=== PATIENT | male | born 1950 | race Caucasian/White ===

== ENCOUNTER 2017-10-18 08:08 | Inpatient (IN) ==
[2017-10-18] MEDS ORDERED: Ipratropium/Albuterol Neb 3 ML IH ONE (08:11)
--- NOTE | 2017-10-18 08:39 | Emergency Department Note ---
Disposition Clinical Impression: Acute exacerbation of chronic obstructive airways disease Disposition: Admitted As Inpatient Condition: Fair [facility]Primary Care Provider[facility] - Forms: ED Satisfaction Letter Time of Disposition: 12:11 General Adult HPI - General Chief complaint: ED Shortness of Breath/Dyspnea Stated complaint: COPD Time Seen by Provider: 10/18/17 08:11 Source: EMS Limitations: no limitations - History of Present Illness HPI Narrative: This is a 66-year-old male with history of COPD, recently initiated on treatment at the [facility] with amoxicillin and prednisone, brought in by EMS because of shortness of breath. He states that he was unable to sleep all night because of shortness of breath. Thus his symptoms began 8-10 hours prior to arrival. He derived no benefit from his own albuterol treatment at home. He was given another bronchodilator treatment by EMS. Pain Scale: 4 - Related Data Previous Rx's Medication Instructions Recorded Acetaminophen [Tylenol] 500 mg PO Q6HR #12 tablet 01/06/17 Lidocaine Patch [Lidoderm 5% patch] 1 each TP DAILY PRN #3 adh..patch 01/06/17 diazePAM [Valium] 5 mg PO BID #10 tablet 01/06/17 predniSONE [Prednisone] 50 mg PO DAILY #4 tablet 01/06/17 HYDROcodone/Acet 5/325 mg [[place] 1 tab PO Q6H PRN #12 tab 01/08/17 5-325 mg] Allergies Allergy/AdvReac Type Severity Reaction Status Date / Time No Known Allergies Allergy Verified 01/07/17 22:25 All systems ED: reviewed and negative except as stated. Respiratory: Reports: cough, dyspnea Past Medical History - Past Medical History Medical history: Reports: COPD, CVA Psychiatric history: Reports: no psych history, PTSD - Social History Smoking Status: Current every day smoker Smokeless Tobacco Status: No Alcohol use: Reports: none Drug use: Reports: none Physical Exam - General Limitations: no limitations General appearance: alert, in no apparent distress - Head Head exam: atraumatic, normocephalic, normal inspection - Eye Eye exam: Present: normal appearance, PERRL, EOMI - Chest Chest inspection: Present: normal inspection, symmetric chest wall rise - Respiratory Respiratory exam: Present: respiratory distress, wheezes, accessory muscle use, prolonged expiratory phase - Cardiovascular Cardiovascular exam: Present: regular rate, normal rhythm, normal heart sounds - Abdominal Exam Abdominal exam: Present: soft, Non-Tender. Absent: tenderness, distention, guarding, rebound, rigidity - Extremities Exam Extremities exam: Present: normal inspection, full ROM. Absent: tenderness, pedal edema - Neurological Exam Neurological exam: Present: alert, oriented X3 - Psychiatric Psychiatric exam: Present: normal affect, normal mood - Skin Skin exam: Present: warm, dry, intact, normal color Course Course Narrative: This is a 66-year-old male with COPD exacerbation and possibly pneumonia. He appears to already be on steroid treatment. Vital Signs Temperature 97.9 F 10/18/17 08:10 Pulse Rate 56 10/18/17 08:10 Respiratory Rate 18 10/18/17 08:10 Blood Pressure 142/67 10/18/17 08:10 O2 Sat by Pulse Oximetry 95 10/18/17 08:10 Temperature 97.9 F 10/18/17 08:10 Pulse Rate 84 10/18/17 09:49 Respiratory Rate 20 10/18/17 09:49 Blood Pressure 127/85 10/18/17 09:49 O2 Sat by Pulse Oximetry 97 10/18/17 09:49 Oxygen Delivery Oxygen Delivery Room Air Medical Decision Making - MDM Narrative Medical decision making narrative: This is a 66-year-old male with COPD exacerbation. He has leukocytosis, but this is most likely secondary to steroid treatment. Bronchodilator treatment mobilized secretions and worsened his cough Bilevel positive airway pressure was tried but was not helpful because it caused more coughing. I discussed his case with the on-call hospitalist, who accepted him for admission for observation for a COPD exacerbation. - Lab Data Lab results narrative: CBC shows leukocytosis of 21.8 BMP was unremarkable Lactate was at the upper end of normal at 2.2 Troponin was low Result diagrams: 10/18/17 08:11 10/18/17 08:11 Lab Results 10/18/17 10/18/17 10/18/17 Range/Units 08:11 08:11 08:20 WBC 21.8 H (4.3-11.1) K/mcL RBC 5.24 (4.19-5.50) M/mcL Hgb 15.7 (12.9-16.9) g/dL Hct 46.6 (37.5-50.1) % MCV 88.9 (83.0-100.0) fL MCH 30.0 (28.0-33.3) pg MCHC 33.7 (31.6-35.5) g/dL RDW 13.0 (11.5-14.5) % Plt Count 187 (140-400) K/mcL MPV 10.8 (9.4-12.4) fL Immature Gran % 0.5 (0-4) % Seg Neutrophils % 75.4 % Lymphocytes % 17.3 % Monocytes % 6.5 % Eosinophils % 0.0 % Basophils % 0.3 % Neutrophils # 16.4 H (1.6-8.9) K/mcL Lymphocytes # 3.8 (0.6-4.6) K/mcL Monocytes # 1.4 H (0.0-1.3) K/mcL Eosinophils # 0.0 (0.0-0.6) K/mcL Basophils # 0.1 (0.0-0.2) K/mcL Sodium 142 (136-145) mEq/L Potassium 4.5 (3.5-5.1) mEq/L Chloride 106 (98-107) mEq/L Carbon Dioxide 27 (23-29) mEq/L BUN 14 (8-23) mg/dL Creatinine 0.93 (0.70-1.30) mg/dL Est GFR ( Amer) > 60 (> 60) Est GFR (Non-Af Amer) > 60 (> 60) BUN/Creatinine Ratio 15 (6-26) Glucose 113 H (70-105) mg/dL Calculated Osmolality 295 (280-300) Lactic Acid 2.2 (0.5-2.2) mmol/L Calcium 9.9 (8.6-10.3) mg/dL Troponin I < 0.03 (< 0.04) ng/mL - Radiology Data Radiology results reviewed: Yes I reviewed the patient's radiology results. Chest x-ray showed no acute process Critical Care Time Critical Care Time: Yes Total Critical Care Time: 20 Attestation: 20 minutes of critical care time was invested in patient evaluation, review of lab results, and discussion with staff on treatment modalities, independent of other procedures.
[2017-10-18 09:01] LABS: BUN/Creatinine Ratio 15 (6-26); Blood Urea Nitrogen 14 mg/dL (8-23); Calcium 9.9 mg/dL (8.6-10.3); Carbon Dioxide 27 mEq/L (23-29); Chloride 106 mEq/L (98-107); Glucose 113 mg/dL (70-105); Osmolality,Calculated 295 (280-300); Potassium 4.5 mEq/L (3.5-5.1); Sodium 142 mEq/L (136-145); Troponin I < 0.03 ng/mL (< 0.04); eGFR For Non-African Americans > 60 (> 60)
[2017-10-18 09:02] LABS: Basophils # 0.1 K/mcL (0.0-0.2); Basophils % 0.3 %; Hematocrit 46.6 % (37.5-50.1); Hemoglobin 15.7 g/dL (12.9-16.9); Immature Granulocytes % 0.5 % (0-4); Lymphocytes # 3.8 K/mcL (0.6-4.6); Lymphocytes % 17.3 %; Mean Corpuscular HGB Conc 33.7 g/dL (31.6-35.5); Mean Corpuscular Volume 88.9 fL (83.0-100.0); Mean Platelet Volume 10.8 fL (9.4-12.4); Monocytes # 1.4 K/mcL (0.0-1.3); Monocytes % 6.5 %; Neutrophils # 16.4 K/mcL (1.6-8.9); Platelet Count 187 K/mcL (140-400); Red Blood Count 5.24 M/mcL (4.19-5.50); Segmented Neutrophils % 75.4 %
[2017-10-18] MEDS ORDERED: Doxycycline 100 MG CAPSULE PO ONE (09:50)
[2017-10-18] MEDS ORDERED: cefTRIAXone 1,000 MG in Water for inj. (sterile) 20 ML 10 ML IVP ONE (09:50)
[2017-10-18] MEDS ORDERED: 0.9 % Sodium Chloride 1,000 ML IVC ONE (09:51)
[2017-10-18] MEDS ORDERED: methylPREDNISolone 125 MG/2 ML VIAL IVP ONE ×2 (13:53→15:15)
[2017-10-18] MEDS ORDERED: Acetaminophen 325 MG TABLET PO PRN (13:58)
[2017-10-18] MEDS ORDERED: *HR* HYDROcodone/Acet 5/325 mg TABLET PO PRN (13:58)
[2017-10-18] MEDS ORDERED: Naloxone 0.4 MG/ML INJ IVP PRN (13:58)
[2017-10-18] MEDS ORDERED: *HR* Promethazine 25 MG/ML VIAL IVP PRN (14:25)
[2017-10-18] MEDS: Azithromycin 500 MG in D5% in Water 250 ML IVPB SCH (15:14)
[2017-10-18] MEDS: Ipratropium/Albuterol Neb 3 ML IH SCH ×3 (15:15→23:30)
--- NOTE | 2017-10-18 15:51 | Internal Med History&Physical ---
<HaydenhollileylaToro moran - Last Filed: 10/18/17 16:18> Date of Encounter: 10/18/17 Time of Encounter: 13:30 Internal Medicine - H&P: HPI Chief complaint: SOB/Dyspnea Admitted From: Emergency Dept Plans for Post Hospital Care: Home History of present illness: Mr. Flores is a 66 year old male w/PMH of COPD, migraines, and TIA 3-4 years ago presents from the ED w/CC of SOB/dyspnea that began yesterday afternoon and worsened today. Reports his SO has been sick recently. Pt. reports Stage IV COPD. [facility] and [facility] on PO amoxicillin, prednisone, and Tessalon. States symptoms worsened. Denies history of DVT/PE. Currently no alleviating or aggravating factors. Patient reports cough and nausea from excessive coughing but denies recent illness, fever, chills, vomiting, headache , changes in vision, unusual bleeding, abdominal pain, diarrhea, constipation, chest pain, shortness of breath, dizziness, lightheadedness, numbness, tingling , pre-syncope, or syncope. Past Med Surg Social Fam HX - Past Medical History Source: patient, old records reviewed Medical history: COPD, migraine, TIA Psychiatric history: PTSD - Past Surgical History Additional surgical history: Metal in Back - Social History Smoking Status: Current every day smoker Packs per day: <1 PPD Smokeless Tobacco Status: No Alcohol use: none Drug use: marijuana Current living situation: Home, With Family Activity Level: Independent ambulation Recent Out of Country Travel Within the Last 8 Weeks: No Exposure or Possible Exposure to Illness During Travel: No - Family History Mother Race: Family Member Ethnicity: Non- Living Status: Age at : 74 Cause of : Pancreatic cancer Hx Family Cancer: Yes (Pancreatic) Father Race: Family Member Ethnicity: Non- Living Status: Age at : 74 Cause of : COPD Hx Family Respiratory Disorders: Yes (COPD) Brother Race: Family Member Ethnicity: Non- Living Status: Still Living Hx Family Cardiac Disorders: Yes (Quad bypass) Sister History Unknown: Yes Race: Family Member Ethnicity: Non- Living Status: Still Living Internal Medicine - H&P: Meds 3 Allergy/AdvReac Type Severity Reaction Status Date / Time No Known Allergies Allergy Verified 01/07/17 22:25 All Systems PM: A 10-system review of systems was performed and is negative for pertinent findings except as documented above in the HPI. - Constitutional Constitutional: no chills, no fever(s), no night sweats - EENT Eyes: no change in vision, no discharge, no pain, no photophobia Ears: no ear discharge, no ear pain, no tinnitus Nose, mouth and throat: no dysphagia, no nasal discharge, no neck pain, no sore throat - Breasts Breasts: as per HPI - Cardiovascular Cardiovascular ROS IM: as per HPI, dyspnea, dyspnea on exertion, no chest pain, no diaphoresis, no lightheadedness, no palpitations, no syncope - Respiratory Respiratory: as per HPI, cough, dyspnea, dyspnea on exertion, pain with cough, no wheezing, no excessive phlegm production - Gastrointestinal Gastrointestinal: as per HPI, nausea, no abdominal pain, no diarrhea, no hematemesis, no hematochezia, no melena, no vomiting - Genitourinary Genitourinary ROS male: as per HPI - Musculoskeletal Musculoskeletal ROS IM: no numbness, no tingling - Integumentary Integumentary IM: no rash, no unusual bruising - Neurological Neurological ROS: no confusion, no convulsions, no focal weakness, no numbness, no tingling, no tremor(s) - Psychiatric Psychiatric: as per HPI, other (PTSD) - Endocrine Endocrine IM: as per HPI - Hematologic/Lymphatic Hematologic/Lymphatic: no easy bruising - Allergic/Immunologic Allergic/Immunologic: as per HPI - Constitutional Vitals: Temp Pulse Resp BP Pulse Ox 98.4 F 88 20 121/78 95 10/18/17 13:56 10/18/17 13:56 10/18/17 15:16 10/18/17 13:56 10/18/17 15:16 General appearance: Present: cooperative, A&O X 3, pleasant, severe distress ( Respiratory/coughing), answers questions appropriately Exam: Pt. examined at bedside and was tripoding d/t SOB/dypnea. Accessory muscle use. Pt. has severe cough that results in increased SOB and difficulty speaking. No steroids administered in ED so will order 125 SoluMedrol IVP ONCE followed by 60 mg IVP Q8HR. Oxymask changed to NC as pt states it works better. Pt. reports being seen at [facility] 2 days ago and placed on by mouth amoxicillin, prednisone, and Tessalon Perles which patient states did not help. Pt. reports he is hungry, but nauseous from coughing. Will order clear liquid diet and advance as tolerated. Pt. denies any other complaints. - Head Head exam: Present: atraumatic, normocephalic - Eye Eye exam: Present: PERRL, conjuntiva pink, sclera anicteric Pupils: Present: PERRL - ENT ENT exam: Present: normal exam - Neck Neck exam general surgery: Present: supple, trachea midline. Absent: lymphadenopathy - Respiratory Respiratory exam: Present: accessory muscle use, respiratory distress, wheezes. Absent: rales, rhonchi - Cardiovascular Cardiovascular exam: Present: RRR, +S1, +S2. Absent: diastolic murmur, gallop, rubs, systolic murmur - GI/Abdominal GI/Abdominal exam: Present: normal bowel sounds, soft, no peritoneal signs. Absent: distended, tenderness - Rectal Rectal exam: Present: deferred - Additional comments: exam deferred. - Extremities Exam Extremities exam: Present: warm, radial pulses palpable and symmetrical. Absent : calf tenderness, cyanotic, pedal edema - Back Exam Back exam: Present: normal inspection - Neurological Exam Neurological exam: Present: alert, CN II-XII intact, oriented X3, no focal deficits. Absent: pronater drift, facial droop, speech deficit - Psychiatric Psychiatric exam: Present: anxious - Skin Skin exam: Present: dry, intact Internal Med - H&P Results - Labs CBC & Chem 7: 10/18/17 08:11 10/18/17 08:11 - Diagnostic Studies Chest x-ray Additional comments: Impressions Chest X-Ray 10/18/17 08:11 IMPRESSION: 1. No acute cardiopulmonary process. 2. Emphysema. D/ / Milton Verduzco MD / Milton Verduzco MD Interpreting Provider: Milton Verduzco MD - Assessment and plan (1) Acute exacerbation of chronic obstructive airways disease Current Visit: Yes Status: Acute Assessment and plan: Acute exacerbation of COPD, likely complicated by bronchitis. Pt. states SOB/ dyspnea started yesterday afternoon and his SO has been ill. Concern for possible PE so D-dimer ordered which is <215. WBC 21.8 on admission. Mucinex for cough. Blood cultures x2. Sputum culture. Respiratory infection panel. Patient received by mouth doxycycline and IVP ceftriaxone in ED. IVPB azithromycin 500 mg daily ordered to begin now. Will adjust abx coverage based on culture/panel results. DuoNeb's every 4 scheduled. 125 mg IVP Solu-Medrol to be followed by 60 mg IVPB every 8 hour. Supplemental O2 with titration and SPO2 monitoring. Pt. would like SW consult for POA paperwork. Pt. discussed w/ Dr. Garcia who agrees w/plan of care. Pt. is high risk for further morbidity and respiratory distress d/t current acute exacerbation of COPD, severe SOB/ dyspnea, hx of stage IV COPD, sick contact w/SO, leukocytosis, and current tobacco abuse. Observation. (2) Bronchitis Current Visit: Yes Status: Acute Assessment and plan: Acute bronchitis associated w/COPD exacerbation. WBC 21.8 on admission. Mucinex for cough. Blood cultures x2. Sputum culture. Respiratory infection panel. Patient received by mouth doxycycline and IVP ceftriaxone in ED. IVPB azithromycin 500 mg daily ordered to begin now. Will adjust abx coverage based on culture/panel results. DuoNeb's every 4 scheduled. 125 mg IVP Solu-Medrol to be followed by 60 mg IVPB every 8 hour. Supplemental O2 with titration and SPO2 monitoring. (3) SOB (shortness of breath) Current Visit: Yes Status: Acute Assessment and plan: Acute SOB/dyspnea since yesterday afternoon d/t COPD exacerbation. DuoNebs Q4HR scheduled. Supplemental O2 w/titration and SpO2 monitoring. 125 mg IVP SoluMedrol ONCE to be followed by 60 mg IVP Q8HR. Falls/safety precautions and up with assist only. (4) Cough Current Visit: Yes Status: Acute Assessment and plan: Acute on chronic cough associated w/COPD and bronchitis. Sputum culture ordered. Respiratory infection panel ordered. Mucinex. DuoNebs Q4HR scheduled. Supplemental O2 w/titration and SpO2 monitoring. (5) DVT prophylaxis Current Visit: Yes Status: Acute Assessment and plan: Heparin 5,000 units SQ Q8HR for DVT prophylaxis. Monitor pt. for signs of bleeding. - Time Spent With Patient Total time spent is greater than 50% in coordination of care (as documented) at patient's floor/unit and/or counseling patient: Greater than 35 minutes <France Garcia - Last Filed: 10/18/17 16:27> Date of Encounter: 10/18/17 Internal Medicine - H&P: HPI History of present illness: Mr. Flores is a 66 year old male All Systems PM: A 10-system review of systems was performed and is negative for pertinent findings except as documented above in the HPI. - Constitutional Vitals: Temp Pulse Resp BP Pulse Ox 98.4 F 88 20 121/78 95 10/18/17 13:56 10/18/17 13:56 10/18/17 15:16 10/18/17 13:56 10/18/17 15:16 Internal Med - H&P Results - Labs CBC & Chem 7: 10/18/17 08:11 10/18/17 08:11 - Assessment and plan (1) Acute exacerbation of chronic obstructive airways disease Current Visit: Yes Status: Acute (2) Bronchitis Current Visit: Yes Status: Acute (3) SOB (shortness of breath) Current Visit: Yes Status: Acute (4) Cough Current Visit: Yes Status: Acute (5) DVT prophylaxis Current Visit: Yes Status: Acute - Time Spent With Patient Total time spent is greater than 50% in coordination of care (as documented) at patient's floor/unit and/or counseling patient: - Attending Attestation I examined this patient and my medical decision-making was reviewed with the Nurse Practitioner. I agree with the documented findings, disposition and treatment plan as described except to the extent set forth below.
[2017-10-18 16:01] LABS: Adenovirus Not Detected (Not Detect); Bordetella Pertussis Not Detected (Not Detect); Chlamydophila pneumoniae Not Detected (Not Detect); Coronavirus 229E Not Detected (Not Detect); Coronavirus HKU1 Not Detected (Not Detect); Coronavirus NL63 Not Detected (Not Detect); Coronavirus OC43 Not Detected (Not Detect); Human Metapneumovirus Not Detected (Not Detect); Human Rhinovirus/Enterovirus DETECTED (Not Detect); Influenza A Subtype 2009 H1 Not Detected (Not Detect); Influenza A Untypeable Not Detected (Not Detect); Influenza B Not Detected (Not Detect); Mycoplasma pneumoniae Not Detected (Not Detect); Parainfluenza Virus 1 Not Detected (Not Detect); Parainfluenza Virus 2 Not Detected (Not Detect); Parainfluenza Virus 3 Not Detected (Not Detect); Parainfluenza Virus 4 Not Detected (Not Detect); Respiratory Syncytial Virus Not Detected (Not Detect)
[2017-10-18] MEDS: *HR* Heparin 5,000 UNIT/ML VIAL SQ SCH (21:04)
[2017-10-18] MEDS: Budesonide/Formoterol 160/4.5 1 PUFF INH IH SCH (21:55)
[2017-10-18] MEDS: 0.9 % Sodium Chloride 1,000 ML IVC SCH (21:58)
[2017-10-19] MEDS: methylPREDNISolone 125 MG/2 ML VIAL IVP SCH ×3 (00:09→14:30)
[2017-10-19] MEDS: Ipratropium/Albuterol Neb 3 ML IH SCH ×6 (03:46→23:22)
[2017-10-19] MEDS: *HR* Heparin 5,000 UNIT/ML VIAL SQ SCH ×3 (05:13→21:29)
[2017-10-19 05:23] LABS: Basophils % 0.2 %; Hematocrit 42.5 % (37.5-50.1); Hemoglobin 14.1 g/dL (12.9-16.9); Immature Granulocytes % 0.8 % (0-4); Lymphocytes # 1.2 K/mcL (0.6-4.6); Lymphocytes % 9.2 %; Mean Corpuscular HGB Conc 33.2 g/dL (31.6-35.5); Mean Corpuscular Hemoglobin 30.1 pg (28.0-33.3); Mean Corpuscular Volume 90.8 fL (83.0-100.0); Mean Platelet Volume 11.3 fL (9.4-12.4); Monocytes # 0.3 K/mcL (0.0-1.3); Monocytes % 2.7 %; Platelet Count 137 K/mcL (140-400); Red Blood Count 4.68 M/mcL (4.19-5.50); Red Cell Distribution Width 12.8 % (11.5-14.5); Segmented Neutrophils % 87.1 %
[2017-10-19 05:40] LABS: Alanine Aminotransferase 15 Units/L (7-52); Albumin 4.1 g/dL (3.5-5.7); Albumin/Globulin Ratio 2.1 (1.1-2.2); Alkaline Phosphatase 64 Units/L (34-104); Aspartate Amino Transferase 23 Units/L (13-39); BUN/Creatinine Ratio 17 (6-26); Bilirubin,Total 0.4 mg/dL (0.3-1.0); Blood Urea Nitrogen 17 mg/dL (8-23); Calcium 9.1 mg/dL (8.6-10.3); Carbon Dioxide 27 mEq/L (23-29); Chloride 112 mEq/L (98-107); Chol/HDL Ratio 2.7 (0-4.9); Cholesterol 129 mg/dL (< 200); Glucose 137 mg/dL (70-105); HDL Cholesterol 47 mg/dL (40-59); LDL Cholesterol,Calculated 68 mg/dL (0-99); Magnesium 2.1 mg/dL (1.6-2.6); Osmolality,Calculated 294 (280-300); Potassium 3.7 mEq/L (3.5-5.1); Sodium 140 mEq/L (136-145); Total Protein 6.1 g/dL (6.4-8.9); Triglycerides 69 mg/dL (< 150); eGFR For Non-African Americans > 60 (> 60)
[2017-10-19] MEDS: Budesonide/Formoterol 160/4.5 1 PUFF INH IH SCH ×2 (07:44→19:55)
[2017-10-19] MEDS: Cholecalciferol (D-3) 1,000 UNIT TABLET PO SCH (08:38)
[2017-10-19] MEDS: 0.9 % Sodium Chloride 1,000 ML IVC SCH (10:50)
[2017-10-19] MEDS: Azithromycin 500 MG in D5% in Water 250 ML IVPB SCH (14:29)
--- NOTE | 2017-10-19 17:56 | Internal Med Progress Note ---
Hospitalist Progress Note - Encounter Date of Encounter: 10/19/17 Time of Encounter: 17:53 - Subjective Interval History: Patient seen and examined at bedside States he feels better Wants to ambulate - Exam Vitals: Temp Pulse Resp BP Pulse Ox 97.9 F 52 16 120/58 94 10/19/17 16:43 10/19/17 16:43 10/19/17 16:43 10/19/17 16:43 10/19/17 16:43 Exam: General: Alert and oriented. In no acute distress. Skin:Normal color, no rash, no lesions. HEENT:EOM, pupils equal, round and reactive. Cardiovascular:Heart sounds distant. Normal S1 & S2, no rubs, murmurs or gallops. No JVD. Pulse regular. Lungs: Breath sounds faint wheezes-decreased air exchange Abdomen:Soft, non-tender, no rigidity. Extremities:No deformity, tenderness, or clubbing. Bilateral lower extremities with 2+ pitting edema. Neurological:Normal cognition and motor skills. Pulses:Carotid and radial pulses normal +2. Rest of the physical exam is non contributory. - Assessment and Plan (1) Acute exacerbation of chronic obstructive airways disease Current Visit: Yes Status: Acute Assessment and Plan: Acute exacerbation of COPD, likely complicated by bronchitis. Pt. states SOB/ dyspnea started yesterday afternoon and his SO has been ill. Concern for possible PE so D-dimer ordered which is <215. WBC 21.8 on admission. Mucinex for cough. Blood cultures x2. Sputum culture. Respiratory infection panel. Patient received by mouth doxycycline and IVP ceftriaxone in ED. IVPB azithromycin 500 mg daily ordered to begin now. Will adjust abx coverage based on culture/panel results. DuoNeb's every 4 scheduled. 125 mg IVP Solu-Medrol to be followed by 60 mg IVPB every 8 hour. Supplemental O2 with titration and SPO2 monitoring. Pt. would like SW consult for POA paperwork. Pt. discussed w/ Dr. Garcia who agrees w/plan of care. Pt. is high risk for further morbidity and respiratory distress d/t current acute exacerbation of COPD, severe SOB/ dyspnea, hx of stage IV COPD, sick contact w/SO, leukocytosis, and current tobacco abuse. Observation. (2) Bronchitis Current Visit: Yes Status: Acute Assessment and Plan: Patient feels better, no coughing at this time Requesting to ambulate in halls cont Mucinex blood cultures X2 Sputum culture -normal upper resp dusty cont duonebs solumedrol 60 mg IV cont 02 cont ABX (3) SOB (shortness of breath) Current Visit: Yes Status: Acute Assessment and Plan: improving Duoneb x 4hr supplemental O2 monitor Spo2 cont solu medrol 60 IVP (4) Cough Current Visit: Yes Status: Acute Assessment and Plan: Acute on chronic cough associated w/COPD and bronchitis. Sputum culture ordered. Respiratory infection panel ordered. Mucinex. DuoNebs Q4HR scheduled. Supplemental O2 w/titration and SpO2 monitoring. (5) DVT prophylaxis Current Visit: Yes Status: Acute Assessment and Plan: Heparin 5,000 units SQ Q8HR for DVT prophylaxis. Monitor pt. for signs of bleeding. - Time Spent with Patient Total time spent is greater than 50% in coordination of care (as documented) at patient's floor/unit and/or counseling patient: Internal Medicine: Result - Labs CBC & Chem 7: 10/19/17 04:23 10/19/17 04:23 Labs: Short CBC 10/19/17 Range/Units 04:23 WBC 12.6 H (4.3-11.1) K/mcL Hgb 14.1 D (12.9-16.9) g/dL Hct 42.5 (37.5-50.1) % Plt Count 137 L (140-400) K/mcL Neutrophils # 11.0 H (1.6-8.9) K/mcL BMP 10/19/17 04:23 Sodium 140 Potassium 3.7 Chloride 112 H Carbon Dioxide 27 BUN 17 Creatinine 1.02 Glucose 137 H Calcium 9.1 Liver Function 10/19/17 Range/Units 04:23 Total Bilirubin 0.4 (0.3-1.0) mg/dL AST 23 (13-39) Units/L ALT 15 (7-52) Units/L Alkaline Phosphatase 64 (34-104) Units/L Albumin 4.1 (3.5-5.7) g/dL - ABG Interpretation ABG results: PT/INR, D-dimer D-Dimer < 215 ng/mLFEU (0-500) 10/18/17 13:11 Consult Discharge Plan - Plan [facility]errals: [facility] [Primary Care Provider] -
[2017-10-20] MEDS: methylPREDNISolone 125 MG/2 ML VIAL IVP SCH ×3 (00:05→18:09)
[2017-10-20] MEDS: Ipratropium/Albuterol Neb 3 ML IH SCH ×6 (03:30→23:16)
[2017-10-20] MEDS: *HR* Heparin 5,000 UNIT/ML VIAL SQ SCH ×3 (06:04→21:53)
[2017-10-20] MEDS: Budesonide/Formoterol 160/4.5 1 PUFF INH IH SCH ×2 (07:57→20:04)
[2017-10-20] MEDS: Cholecalciferol (D-3) 1,000 UNIT TABLET PO SCH (08:52)
[2017-10-20] MEDS: Azithromycin 500 MG in D5% in Water 250 ML IVPB SCH (14:19)
--- NOTE | 2017-10-20 14:40 | Internal Med Progress Note ---
Hospitalist Progress Note - Encounter Date of Encounter: 10/20/17 Time of Encounter: 10:00 - Subjective Interval History: Patient seen and examined at bedside He has been ambulating sats stable on RA- Denies any SOB or cough, does have scattered wheezes - Exam Vitals: Temp Pulse Resp BP Pulse Ox 98.2 F 55 18 128/56 92 10/20/17 11:50 10/20/17 11:50 10/20/17 11:50 10/20/17 11:50 10/20/17 11:50 Exam: General: Alert and oriented. In no acute distress. Skin:Normal color, no rash, no lesions. HEENT:EOM, pupils equal, round and reactive. Cardiovascular:Heart sounds distant. Normal S1 & S2, no rubs, murmurs or gallops. No JVD. Pulse regular. Lungs: Breath sounds faint wheezes-decreased air exchange Abdomen:Soft, non-tender, no rigidity. Extremities:No deformity, tenderness, or clubbing. Bilateral lower extremities with 2+ pitting edema. Neurological:Normal cognition and motor skills. Pulses:Carotid and radial pulses normal +2. Rest of the physical exam is non contributory. - Assessment and Plan (1) Acute exacerbation of chronic obstructive airways disease Current Visit: Yes Status: Acute Assessment and Plan: Patient feels better ,no coughing ambulating without SOB cont mucinex Blood culture pending Sputum culture -normal upper resp dusty cont duonebs solumedrol decreased to 60mg IV every 12 cont 02 cont ABX encouraged to stop smoking (2) Bronchitis Current Visit: Yes Status: Acute Assessment and Plan: Patient feels better, no coughing at this time Requesting to ambulate in halls cont Mucinex blood cultures X2 Sputum culture -normal upper resp dusty cont duonebs solumedrol 60 mg IV cont 02 cont ABX (3) SOB (shortness of breath) Current Visit: Yes Status: Acute Assessment and Plan: improving Duoneb x 4hr supplemental O2 monitor Spo2 cont solu medrol 60 IVP decrease to every 12 hrs (4) Cough Current Visit: Yes Status: Acute Assessment and Plan: Acute on chronic cough associated w/COPD and bronchitis. Sputum culture ordered. Respiratory infection panel ordered. Mucinex. DuoNebs Q4HR scheduled. Supplemental O2 w/titration and SpO2 monitoring. (5) DVT prophylaxis Current Visit: Yes Status: Acute Assessment and Plan: Heparin 5,000 units SQ Q8HR for DVT prophylaxis. Monitor pt. for signs of bleeding. (6) Chronic back pain Current Visit: Yes Status: Acute Assessment and Plan: patient states he has chronic back pain to the point the he has difficulty ambulating we will consult PT/OT cont with norco lidoderm patch add muscle relaxer - Time Spent with Patient Total time spent is greater than 50% in coordination of care (as documented) at patient's floor/unit and/or counseling patient: Internal Medicine: Result - Labs CBC & Chem 7: 10/20/17 14:54 10/19/17 04:23 - ABG Interpretation ABG results: PT/INR, D-dimer D-Dimer < 215 ng/mLFEU (0-500) 10/18/17 13:11 Consult Discharge Plan - Plan [facility]errals: [facility] [Primary Care Provider] - (6) Chronic back pain Qualifiers: Back pain location: low back pain Back pain laterality: unspecified Sciatica presence: unspecified whether sciatica present Qualified Code(s): M54.5 - Low back pain; G89.29 - Other chronic pain
[2017-10-20] MEDS: *HR* HYDROcodone/Acet 5/325 mg TABLET PO SCH ×2 (15:02→20:43)
[2017-10-20 15:06] LABS: Basophils % 0.1 %; Hematocrit 39.8 % (37.5-50.1); Hemoglobin 13.6 g/dL (12.9-16.9); Immature Granulocytes % 1.3 % (0-4); Lymphocytes # 1.1 K/mcL (0.6-4.6); Lymphocytes % 5.9 %; Mean Corpuscular HGB Conc 34.2 g/dL (31.6-35.5); Mean Corpuscular Hemoglobin 31.1 pg (28.0-33.3); Mean Corpuscular Volume 90.9 fL (83.0-100.0); Mean Platelet Volume 11.1 fL (9.4-12.4); Monocytes # 0.6 K/mcL (0.0-1.3); Monocytes % 3.1 %; Neutrophils # 16.5 K/mcL (1.6-8.9); Platelet Count 135 K/mcL (140-400); Red Blood Count 4.38 M/mcL (4.19-5.50); Segmented Neutrophils % 89.6 %
[2017-10-20 15:24] LABS: BUN/Creatinine Ratio 26 (6-26); Blood Urea Nitrogen 24 mg/dL (8-23); Calcium 8.9 mg/dL (8.6-10.3); Carbon Dioxide 27 mEq/L (23-29); Chloride 107 mEq/L (98-107); Glucose 192 mg/dL (70-105); Osmolality,Calculated 295 (280-300); Potassium 4.4 mEq/L (3.5-5.1); Sodium 138 mEq/L (136-145); eGFR For Non-African Americans > 60 (> 60)
[2017-10-21] MEDS: *HR* HYDROcodone/Acet 5/325 mg TABLET PO SCH ×6 (01:42→20:20)
[2017-10-21] MEDS ORDERED: *HR* LORazepam 2 MG/ML VIAL IVP ONE (02:24)
[2017-10-21] MEDS: Ipratropium/Albuterol Neb 3 ML IH SCH ×8 (03:29→23:57)
[2017-10-21] MEDS: *HR* Heparin 5,000 UNIT/ML VIAL SQ SCH ×3 (06:46→21:16)
[2017-10-21] MEDS: methylPREDNISolone 125 MG/2 ML VIAL IVP SCH (06:46)
[2017-10-21] MEDS: Cholecalciferol (D-3) 1,000 UNIT TABLET PO SCH (08:49)
--- NOTE | 2017-10-21 09:48 | Internal Med Progress Note ---
Hospitalist Progress Note - Encounter Date of Encounter: 10/21/17 Time of Encounter: 09:43 - Subjective Interval History: Patient seen and examined at bedside He is coughing -nonproductive- breathing tx given improving coughing. Lung sounds improved - Exam Vitals: Temp Pulse Resp BP Pulse Ox 98.5 F 66 16 147/80 96 10/20/17 21:51 10/21/17 02:40 10/20/17 21:51 10/21/17 02:40 10/20/17 21:51 Exam: General: Alert and oriented. In no acute distress. Skin:Normal color, no rash, no lesions. HEENT:EOM, pupils equal, round and reactive. Cardiovascular:Heart sounds distant. Normal S1 & S2, no rubs, murmurs or gallops. No JVD. Pulse regular. Lungs: Breath sounds faint wheezes-decreased air exchange Abdomen:Soft, non-tender, no rigidity. Extremities:No deformity, tenderness, or clubbing. Bilateral lower extremities with 2+ pitting edema. Neurological:Normal cognition and motor skills. Pulses:Carotid and radial pulses normal +2. Rest of the physical exam is non contributory. - Assessment and Plan (1) Acute exacerbation of chronic obstructive airways disease Current Visit: Yes Status: Acute Assessment and Plan: Having coughing episode - cont breathing tx cont mucinex Blood culture pending Sputum culture -normal upper resp dusty cont duonebs solumedrol decreased to 40mg IV every 12 cont 02 cont ABX encouraged to stop smoking (2) Bronchitis Current Visit: Yes Status: Acute Assessment and Plan: Having coughing episode- cont breathing tx cont Mucinex blood cultures X2 Sputum culture -normal upper resp dusty cont duonebs solumedrol 60 mg IV cont 02 cont ABX (3) SOB (shortness of breath) Current Visit: Yes Status: Acute Assessment and Plan: improving Duoneb x 4hr supplemental O2 monitor Spo2 cont solu medrol 60 IVP decrease to every 12 hrs (4) Cough Current Visit: Yes Status: Acute Assessment and Plan: Acute on chronic cough associated w/COPD and bronchitis. Sputum culture with normal dusty . Respiratory infection panel ordered. Mucinex. DuoNebs Q4HR scheduled. Supplemental O2 w/titration and SpO2 monitoring. (5) DVT prophylaxis Current Visit: Yes Status: Acute Assessment and Plan: Heparin 5,000 units SQ Q8HR for DVT prophylaxis. Monitor pt. for signs of bleeding. (6) Chronic back pain Current Visit: Yes Status: Acute Assessment and Plan: patient states he has chronic back pain to the point the he has difficulty ambulating we will consult PT/OT cont with norco lidoderm patch add muscle relaxer - Time Spent with Patient Total time spent is greater than 50% in coordination of care (as documented) at patient's floor/unit and/or counseling patient: Internal Medicine: Result - Labs CBC & Chem 7: 10/20/17 14:54 10/20/17 14:54 Labs: Short CBC 10/20/17 Range/Units 14:54 WBC 18.4 H (4.3-11.1) K/mcL Hgb 13.6 (12.9-16.9) g/dL Hct 39.8 (37.5-50.1) % Plt Count 135 L (140-400) K/mcL Neutrophils # 16.5 H (1.6-8.9) K/mcL BMP 10/20/17 14:54 Sodium 138 Potassium 4.4 Chloride 107 Carbon Dioxide 27 BUN 24 H Creatinine 0.94 Glucose 192 H Calcium 8.9 - ABG Interpretation ABG results: PT/INR, D-dimer D-Dimer < 215 ng/mLFEU (0-500) 10/18/17 13:11 Consult Discharge Plan - Plan [facility]errals: [facility] [Primary Care Provider] - (6) Chronic back pain Qualifiers: Back pain location: low back pain Back pain laterality: unspecified Sciatica presence: unspecified whether sciatica present Qualified Code(s): M54.5 - Low back pain; G89.29 - Other chronic pain
[2017-10-21] MEDS: Budesonide/Formoterol 160/4.5 1 PUFF INH IH SCH ×2 (09:49→20:24)
[2017-10-21 11:17] LABS: Basophils % 0.2 %; Hematocrit 40.9 % (37.5-50.1); Hemoglobin 13.8 g/dL (12.9-16.9); Immature Granulocytes % 1.2 % (0-4); Lymphocytes % 6.3 %; Mean Corpuscular HGB Conc 33.7 g/dL (31.6-35.5); Mean Corpuscular Hemoglobin 30.3 pg (28.0-33.3); Mean Corpuscular Volume 89.9 fL (83.0-100.0); Mean Platelet Volume 10.9 fL (9.4-12.4); Monocytes # 0.6 K/mcL (0.0-1.3); Monocytes % 3.4 %; Neutrophils # 14.5 K/mcL (1.6-8.9); Platelet Count 148 K/mcL (140-400); Red Blood Count 4.55 M/mcL (4.19-5.50); Segmented Neutrophils % 88.9 %
[2017-10-21 11:24] LABS: Alanine Aminotransferase 36 Units/L (7-52); Albumin 3.7 g/dL (3.5-5.7); Albumin/Globulin Ratio 2.1 (1.1-2.2); Alkaline Phosphatase 58 Units/L (34-104); Aspartate Amino Transferase 21 Units/L (13-39); BUN/Creatinine Ratio 24 (6-26); Bilirubin,Total 0.4 mg/dL (0.3-1.0); Blood Urea Nitrogen 21 mg/dL (8-23); Calcium 9.1 mg/dL (8.6-10.3); Carbon Dioxide 31 mEq/L (23-29); Chloride 105 mEq/L (98-107); Globulin 1.8 g/dL (2.4-3.5); Glucose 125 mg/dL (70-105); Osmolality,Calculated 296 (280-300); Potassium 4.2 mEq/L (3.5-5.1); Sodium 141 mEq/L (136-145); Total Protein 5.5 g/dL (6.4-8.9); eGFR For Non-African Americans > 60 (> 60)
[2017-10-21 11:25] LABS: BUN/Creatinine Ratio 23 (6-26); Blood Urea Nitrogen 20 mg/dL (8-23); Carbon Dioxide 31 mEq/L (23-29); Chloride 104 mEq/L (98-107); Glucose 123 mg/dL (70-105); Osmolality,Calculated 296 (280-300); Potassium 4.2 mEq/L (3.5-5.1); Sodium 141 mEq/L (136-145); eGFR For Non-African Americans > 60 (> 60)
[2017-10-21] MEDS: Azithromycin 500 MG in D5% in Water 250 ML IVPB SCH (14:37)
[2017-10-21] MEDS: MethylPREDNISolone 40 MG/ML VIAL IVP SCH (17:23)
[2017-10-21] MEDS ORDERED: Melatonin 3 MG TABLET PO PRN (20:31)
[2017-10-22] MEDS: *HR* HYDROcodone/Acet 5/325 mg TABLET PO SCH ×7 (01:00→23:05)
[2017-10-22] MEDS: Ipratropium/Albuterol Neb 3 ML IH SCH ×6 (03:54→23:07)
[2017-10-22] MEDS: MethylPREDNISolone 40 MG/ML VIAL IVP SCH ×3 (05:44→23:05)
[2017-10-22] MEDS: *HR* Heparin 5,000 UNIT/ML VIAL SQ SCH ×3 (05:44→23:05)
[2017-10-22 06:04] LABS: Basophils % 0.2 %; Hematocrit 39.7 % (37.5-50.1); Hemoglobin 13.3 g/dL (12.9-16.9); Immature Granulocytes % 1.2 % (0-4); Lymphocytes # 1.6 K/mcL (0.6-4.6); Lymphocytes % 11.8 %; Mean Corpuscular HGB Conc 33.5 g/dL (31.6-35.5); Mean Corpuscular Hemoglobin 30.3 pg (28.0-33.3); Mean Corpuscular Volume 90.4 fL (83.0-100.0); Mean Platelet Volume 11.3 fL (9.4-12.4); Monocytes # 0.8 K/mcL (0.0-1.3); Monocytes % 6.2 %; Neutrophils # 10.8 K/mcL (1.6-8.9); Platelet Count 135 K/mcL (140-400); Red Blood Count 4.39 M/mcL (4.19-5.50); Red Cell Distribution Width 12.8 % (11.5-14.5); Segmented Neutrophils % 80.6 %
[2017-10-22 06:26] LABS: Alanine Aminotransferase 48 Units/L (7-52); Albumin 3.4 g/dL (3.5-5.7); Alkaline Phosphatase 55 Units/L (34-104); Aspartate Amino Transferase 23 Units/L (13-39); BUN/Creatinine Ratio 25 (6-26); Bilirubin,Total 0.4 mg/dL (0.3-1.0); Blood Urea Nitrogen 20 mg/dL (8-23); Calcium 8.8 mg/dL (8.6-10.3); Carbon Dioxide 32 mEq/L (23-29); Chloride 102 mEq/L (98-107); Globulin 1.7 g/dL (2.4-3.5); Glucose 133 mg/dL (70-105); Osmolality,Calculated 295 (280-300); Potassium 4.5 mEq/L (3.5-5.1); Sodium 140 mEq/L (136-145); Total Protein 5.1 g/dL (6.4-8.9); eGFR For Non-African Americans > 60 (> 60)
[2017-10-22] MEDS: Budesonide/Formoterol 160/4.5 1 PUFF INH IH SCH ×2 (07:23→20:30)
[2017-10-22] MEDS: Cholecalciferol (D-3) 1,000 UNIT TABLET PO SCH (07:56)
--- NOTE | 2017-10-22 14:42 | Palliative - Consult Note ---
Date of Encounter: 10/22/17 Time of Encounter: 12:00 - Assessment and Plan (1) Smoking addiction Current Visit: Yes Status: Acute Assessment and plan: counseled pt on smking cessation, discussed the damage that smoking causes to his health. Pt states he is aware and cutting down. offered help for smoking cessation, including nicotine patch. pt refuses. (2) Goals of care, counseling/discussion Current Visit: Yes Status: Acute Assessment and plan: Met with pt at the bedside. Discussed pt's medical condition, trajectory of illness, treatment options and prognosis. Pt states that he requested palliative care for help in the treatment of chronic back pain as he has been unable to obtain pain medication in the community. [facility] Pt is happy with the pain medication he is receiving now inpatient. Explained to pt that although we recommend continuation of his medication for chronic pain, outpatient prescription will have to be continued by PMD. Pt confirmed his code status as DNRCC Arrest and DNI. Pt is not a hospice candidate at this time, explained the option of hospice for when the need arises. (3) Acute exacerbation of chronic obstructive airways disease Current Visit: Yes Status: Acute Assessment and plan: Pt clinically improved. pt is COPD, stage IV. At baseline, on home oxygen 2L NC at night. able to walk in the house without oxygen Independent on all ADLs. management per primary team (4) SOB (shortness of breath) Current Visit: Yes Status: Acute Assessment and plan: SOB due to COPD exacerbation, now improved. Continue oxygen nc (5) Chronic back pain Current Visit: Yes Status: Chronic Assessment and plan: Pt states he has Chronic back pain for several years. Pt declares that he was on chronic treatment with Hydrocodone/acetaminophen 5/ 325mg, 2 pills BID. Pt is currently on [place] 1 pill q4hrs scheduled. He states that at the current dosage the pain is improved, and that he usually take 4 pills during the day. Recommend to change to q4hrs prn. evaluate pt's need of pain medication and adjust on discharge, to no more than 4 pills daily of [place]. Bowel regimen: docusate BID Qualifiers: Back pain location: low back pain Back pain laterality: unspecified Sciatica presence: unspecified whether sciatica present Qualified Code(s): M54.5 - Low back pain; G89.29 - Other chronic pain Palliative-CN HPI - Data of Consult Consult date: 10/20/17 Requesting Physician: France Garcia MD Primary Care Provider: [facility] - Consult Narrative Reason for consult: Pt requested palliative care History of present illness: Mr. Flores is a 66 year old male /PMH of COPD, migraines, and TIA 3-4 years ago presents from the ED complaining of worsening SOB/dyspnea. Pt. reports Stage IV COPD, [facility] and was placed on PO amoxicillin, prednisone, and Tessalon, with no improvement of symptoms. at the time of exam today, pt is sitting on chair, in no acute distress, states the cough is resolved and the SOB is better, He denies recent illness, fever, chills, vomiting, headache, abdominal pain, diarrhea, constipation, chest pain, dizziness. CC: France Garcia MD Past Med Surg Social Fam HX - Past Medical History Medical history: COPD, migraine, TIA Psychiatric history: PTSD - Past Surgical History Additional surgical history: Metal in Back - Social History Smoking Status: Current every day smoker Packs per day: <1 PPD Smokeless Tobacco Status: No Alcohol use: none Drug use: marijuana - Family History Mother Race: Family Member Ethnicity: Non- Living Status: Age at : 74 Cause of : Pancreatic cancer Hx Family Cancer: Yes (Pancreatic) Father Race: Family Member Ethnicity: Non- Living Status: Age at : 74 Cause of : COPD Hx Family Respiratory Disorders: Yes (COPD) Brother Race: Family Member Ethnicity: Non- Living Status: Still Living Hx Family Cardiac Disorders: Yes (Quad bypass) Sister History Unknown: Yes Race: Family Member Ethnicity: Non- Living Status: Still Living Medications and Allergies Albuterol Sulfate [Proair Hfa] 2 puff IH Q4H PRN 10/18/17 [History] Budesonide/Formoterol 160/4.5 [Symbicort 160/4.5] 2 puff IH BIDR 10/18/17 [ History] Cholecalciferol (D-3) [Vitamin D] 10,000 unit PO DAILY 10/18/17 [History] Ipratropium/Albuterol Neb [Duoneb] 3 ml IH Q8H PRN 10/18/17 [History] Levothyroxine [Synthroid] 112 mcg PO DAILY 10/18/17 [History] Simvastatin [Zocor] 40 mg PO HS 10/18/17 [History] 3 Allergy/AdvReac Type Severity Reaction Status Date / Time No Known Allergies Allergy Verified 01/07/17 22:25 All systems: reviewed and no additional remarkable complaints except as stated - Constitutional Constitutional ROS PAL: decreased appetite, no weight loss - Cardiovascular Cardiovascular ROS: no chest pain, no leg edema - Respiratory Respiratory: dyspnea on exertion, chest congestion Palliative Care-Exam - Constitutional Vitals: Temp Pulse Resp BP Pulse Ox 97.8 F 86 16 150/70 97 10/22/17 04:07 10/22/17 04:07 10/22/17 11:12 10/22/17 04:07 10/22/17 11:12 Exam: Vitals reviewed General appearance: alert, oriented x3, appears comfortable Eyes: nonicteric, left lower eyelid edema EENT: oropharynx moist Neck: supple, no lymphadenopathy, no JVD Chest: bilateral: reduced air entry, increased effort Cardiovascular: regular rate and rhythm Gastrointestinal: soft, non-tender, non-distended Integumentary: normal Extremities: no cyanosis, no edema, no clubbing Musculoskeletal: no deformities, tenderness on palpation of lower back and neck Neurologic: normal mental status, non-focal exam Psych: mood appropriate, affect normal Internal Medicine - CN: Reslt - Labs CBC & Chem 7: 10/22/17 04:48 10/22/17 04:48 Labs: Short CBC 10/22/17 Range/Units 04:48 WBC 13.4 H (4.3-11.1) K/mcL Hgb 13.3 (12.9-16.9) g/dL Hct 39.7 (37.5-50.1) % Plt Count 135 L (140-400) K/mcL Neutrophils # 10.8 H (1.6-8.9) K/mcL BMP 10/22/17 04:48 Sodium 140 Potassium 4.5 Chloride 102 Carbon Dioxide 32 H BUN 20 Creatinine 0.80 Glucose 133 H Calcium 8.8 Liver Function 10/22/17 Range/Units 04:48 Total Bilirubin 0.4 (0.3-1.0) mg/dL AST 23 (13-39) Units/L ALT 48 (7-52) Units/L Alkaline Phosphatase 55 (34-104) Units/L Albumin 3.4 L (3.5-5.7) g/dL - ABG Interpretation ABG results: PT/INR, D-dimer D-Dimer < 215 ng/mLFEU (0-500) 10/18/17 13:11 Consult Discharge Plan - Plan [facility]errals: [facility] [Primary Care Provider] - Palliative Quality Palliative Quality: Screen for Code Status: Yes, Screen for Goals of Care: Yes, Screen for Pain: Yes, If Pain Regimen Started, Initiate Bowel Regimen: Yes, Screen for Nausea/Vomitting: Yes Code Status: 10/18/17 13:58 Resuscitation Status: Active [RES] Routine Comment: Resuscitation Status: DNR-Comfort Care-Arrest
--- NOTE | 2017-10-22 15:46 | Internal Med Progress Note ---
Hospitalist Progress Note - Encounter Date of Encounter: 10/22/17 Time of Encounter: 15:44 - Subjective Interval History: Patient has had worsening respiratory status overnight with an increased cough. He reports that throughout the night he is also had wheezing. The patient is concerned as he was informed that he would be discharged today and does not feel he is ready for discharge. I agree with this assessment and discussed plan of care including increasing IV steroids, scheduled DuoNeb use and changing the patient's antibiotic based on sputum cultures. He verbalizes understanding and is in agreement - Exam Vitals: Temp Pulse Resp BP Pulse Ox 97.8 F 86 16 150/70 97 10/22/17 04:07 10/22/17 04:07 10/22/17 15:20 10/22/17 04:07 10/22/17 15:20 Exam: PHYSICAL EXAMINATION: GENERAL: The patient is an ill appearing elderly male in with respiratory distress, He is alert and oriented x3. HEENT: Head is normocephalic and atraumatic. Extraocular muscles are intact. Pupils are equal, round, and reactive to light and accommodation. Nares appeared normal. Mouth is well hydrated and without lesions. Mucous membranes are moist. Posterior pharynx clear of any exudate or lesions. NECK: Supple. No carotid bruits. No lymphadenopathy or thyromegaly. LUNGS: Diminished throughout with scattered expiratory wheezing to auscultation AP and L, prolonged expiratory phase and conversational dyspnea. HEART: Regular rate and rhythm, S1, S2 without murmur. ABDOMEN: Soft, nontender, and nondistended. Positive bowel sounds. No hepatosplenomegaly was noted. EXTREMITIES: Without any cyanosis, clubbing, rash, lesions or edema. SKIN: No ulceration or induration present. - Assessment and Plan (1) Bronchitis Current Visit: Yes Status: Acute Assessment and Plan: Dyspnea and cough, patient reports that his respiratory status is worsened overnight with increasing dyspnea and wheezing Bronchitis and exacerbation of COPD secondary to rhinovirus and Enterobacter Aerogenous - cont breathing tx cont Mucinex blood cultures X2 pending Sputum culture -Enterobacter Aerogenous sensitive to Levaquin cont duonebs solumedrol 40 mg IV 3 times a day cont 02 Change antibiotics from azithromycin to Levaquin (2) Acute exacerbation of chronic obstructive airways disease Current Visit: Yes Status: Acute Assessment and Plan: See above (3) SOB (shortness of breath) Current Visit: Yes Status: Acute Assessment and Plan: Worsening, see above (4) Cough Current Visit: Yes Status: Acute Assessment and Plan: See above (5) Chronic back pain Current Visit: Yes Status: Acute Assessment and Plan: Per history cont with norco lidoderm patch and when necessary muscle relaxers (6) DVT prophylaxis Current Visit: Yes Status: Acute Assessment and Plan: Continue subcutaneous heparin - Time Spent with Patient Total time spent is greater than 50% in coordination of care (as documented) at patient's floor/unit and/or counseling patient: less than 15 minutes Plan of Care Discussed with: patient Internal Medicine: Result - Labs CBC & Chem 7: 10/22/17 04:48 10/22/17 04:48 Labs: Short CBC 10/22/17 Range/Units 04:48 WBC 13.4 H (4.3-11.1) K/mcL Hgb 13.3 (12.9-16.9) g/dL Hct 39.7 (37.5-50.1) % Plt Count 135 L (140-400) K/mcL Neutrophils # 10.8 H (1.6-8.9) K/mcL BMP 10/22/17 04:48 Sodium 140 Potassium 4.5 Chloride 102 Carbon Dioxide 32 H BUN 20 Creatinine 0.80 Glucose 133 H Calcium 8.8 Liver Function 10/22/17 Range/Units 04:48 Total Bilirubin 0.4 (0.3-1.0) mg/dL AST 23 (13-39) Units/L ALT 48 (7-52) Units/L Alkaline Phosphatase 55 (34-104) Units/L Albumin 3.4 L (3.5-5.7) g/dL - ABG Interpretation ABG results: PT/INR, D-dimer D-Dimer < 215 ng/mLFEU (0-500) 10/18/17 13:11 Consult Discharge Plan - Plan [facility]errals: [facility] [Primary Care Provider] - (5) Chronic back pain Qualifiers: Back pain location: low back pain Back pain laterality: unspecified Sciatica presence: unspecified whether sciatica present Qualified Code(s): M54.5 - Low back pain; G89.29 - Other chronic pain
[2017-10-22] MEDS: levoFLOXacin 750 MG TABLET PO SCH (18:36)
[2017-10-23] MEDS: Ipratropium/Albuterol Neb 3 ML IH SCH ×6 (03:44→23:04)
[2017-10-23] MEDS: *HR* HYDROcodone/Acet 5/325 mg TABLET PO SCH ×5 (04:00→20:17)
[2017-10-23 04:15] LABS: Basophils % 0.4 %; Hematocrit 41.8 % (37.5-50.1); Hemoglobin 14.2 g/dL (12.9-16.9); Immature Granulocytes % 2.3 % (0-4); Lymphocytes # 0.9 K/mcL (0.6-4.6); Lymphocytes % 7.9 %; Mean Corpuscular Hemoglobin 30.2 pg (28.0-33.3); Mean Corpuscular Volume 88.9 fL (83.0-100.0); Mean Platelet Volume 11.1 fL (9.4-12.4); Monocytes # 0.4 K/mcL (0.0-1.3); Monocytes % 3.6 %; Neutrophils # 9.5 K/mcL (1.6-8.9); Platelet Count 142 K/mcL (140-400); Red Cell Distribution Width 12.7 % (11.5-14.5); Segmented Neutrophils % 85.8 %
[2017-10-23 04:35] LABS: BUN/Creatinine Ratio 25 (6-26); Blood Urea Nitrogen 20 mg/dL (8-23); Calcium 8.9 mg/dL (8.6-10.3); Carbon Dioxide 34 mEq/L (23-29); Chloride 102 mEq/L (98-107); Glucose 152 mg/dL (70-105); Osmolality,Calculated 298 (280-300); Potassium 4.2 mEq/L (3.5-5.1); Sodium 141 mEq/L (136-145); eGFR For Non-African Americans > 60 (> 60)
[2017-10-23] MEDS: *HR* Heparin 5,000 UNIT/ML VIAL SQ SCH ×3 (06:06→20:04)
[2017-10-23] MEDS: Azithromycin 500 MG in D5% in Water 250 ML IVPB SCH (07:38)
[2017-10-23] MEDS: Sennosides/Docusate Sodium TABLET PO SCH (08:20)
[2017-10-23] MEDS: Cholecalciferol (D-3) 1,000 UNIT TABLET PO SCH (08:20)
[2017-10-23] MEDS: levoFLOXacin 750 MG TABLET PO SCH (08:20)
[2017-10-23] MEDS: MethylPREDNISolone 40 MG/ML VIAL IVP SCH ×2 (08:21→16:24)
[2017-10-23] MEDS: Budesonide/Formoterol 160/4.5 1 PUFF INH IH SCH ×2 (09:31→21:38)
[2017-10-23] MEDS: Famotidine 20 MG TABLET PO SCH ×2 (12:19→16:21)
--- NOTE | 2017-10-23 12:21 | Internal Med Progress Note ---
Hospitalist Progress Note - Encounter Date of Encounter: 10/23/17 Time of Encounter: 12:17 - Subjective Interval History: Continues to have shortness of breath, conversational dyspnea, cough and wheezing. - Exam Vitals: Temp Pulse Resp BP Pulse Ox 98.1 F 95 18 159/71 93 10/23/17 08:13 10/23/17 08:13 10/23/17 11:00 10/23/17 08:13 10/23/17 11:00 Exam: PHYSICAL EXAMINATION: GENERAL: The patient is an ill appearing elderly male in with respiratory distress, He is alert and oriented x3. HEENT: Extraocular muscles are intact. Pupils are equal, round, and reactive to light and accommodation. NECK: Supple. No carotid bruits. No lymphadenopathy or thyromegaly. LUNGS: Diminished throughout with scattered expiratory wheezing to auscultation AP and L, prolonged expiratory phase and conversational dyspnea. HEART: Regular rate and rhythm, S1, S2 without murmur. ABDOMEN: Soft, nontender, and nondistended. Positive bowel sounds. No hepatosplenomegaly was noted. EXTREMITIES: Without any cyanosis, clubbing, rash, lesions or edema. SKIN: No ulceration or induration present. - Assessment and Plan (1) Bronchitis Current Visit: Yes Status: Acute (2) Acute exacerbation of chronic obstructive airways disease Current Visit: Yes Status: Acute (3) SOB (shortness of breath) Current Visit: Yes Status: Acute (4) Cough Current Visit: Yes Status: Acute (5) Chronic back pain Current Visit: Yes Status: Chronic (6) DVT prophylaxis Current Visit: Yes Status: Acute Assessment and Plan: Continue subcutaneous heparin - Summary of Assessment and Plan Summary of Assessment and Plan: Patient presented with viral and bacterial bronchitis parainfluenza 2; enterobacter aerogenes of sputum continues to be dyspneic, wheezing and cough changed abx to rocephin 2/2 drug reaction (rash) with levaquin cont o2 support PRN long hx of 4 PPD smoker continue duonebs, and iv steroids treat rx reaction with benadryl, famotadine d/c home with palliative care when clinically stable - Time Spent with Patient Total time spent is greater than 50% in coordination of care (as documented) at patient's floor/unit and/or counseling patient: less than 15 minutes Plan of Care Discussed with: patient Internal Medicine: Result - Labs CBC & Chem 7: 10/23/17 03:33 10/23/17 03:33 Labs: Short CBC 10/23/17 Range/Units 03:33 WBC 11.1 (4.3-11.1) K/mcL Hgb 14.2 (12.9-16.9) g/dL Hct 41.8 (37.5-50.1) % Plt Count 142 (140-400) K/mcL Neutrophils # 9.5 H (1.6-8.9) K/mcL BMP 10/23/17 03:33 Sodium 141 Potassium 4.2 Chloride 102 Carbon Dioxide 34 H BUN 20 Creatinine 0.80 Glucose 152 H Calcium 8.9 - ABG Interpretation ABG results: PT/INR, D-dimer D-Dimer < 215 ng/mLFEU (0-500) 10/18/17 13:11 Consult Discharge Plan - Plan Referrals: [facility] [Primary Care Provider] - (5) Chronic back pain Qualifiers: Back pain location: low back pain Back pain laterality: unspecified Sciatica presence: unspecified whether sciatica present Qualified Code(s): M54.5 - Low back pain; G89.29 - Other chronic pain
--- NOTE | 2017-10-23 15:13 | Palliative Progress Note ---
Date of Encounter: 10/23/17 Time of Encounter: 13:00 - Assessment and plan (1) Smoking addiction Current Visit: Yes Status: Acute Assessment and plan: pt working on cessation (2) Goals of care, counseling/discussion Current Visit: Yes Status: Acute Assessment and plan: no changes in GOC (3) Acute exacerbation of chronic obstructive airways disease Current Visit: Yes Status: Acute Assessment and plan: improved respiratory status. management per primary team (4) Chronic back pain Current Visit: Yes Status: Chronic Assessment and plan: Reviewed [facility], patient was on Hydrocodone/acetaminophen 5/325 mg, 112 pills every 28 days since 01/2014, in [place]. pt prescribtions were discontinued when pt moved to [place]. no red flag behavior noted from report. pt was on a stable dose. as per pt since his medication has been discontinued, he is unable to perform most activities that he used to, because any wrong movement can trigger a pain crisis. Palliative care does not have an outpatient pain clinic. recommend continue current dosage of norco 5-325mg q 4hrs prn Discharge pt with few days of medication when stable Referral to pain clinic on discharge fo continuation of treatment. Qualifiers: Back pain location: low back pain Back pain laterality: unspecified Sciatica presence: unspecified whether sciatica present Qualified Code(s): M54.5 - Low back pain; G89.29 - Other chronic pain - Time Spent With Patient Total time spent is greater than 50% in coordination of care (as documented) at patient's floor/unit and/or counseling patient: Greater than 35 minutes - Subjective Interval history: patient is complaining of a new rash that strted last night. He also complains of insomnia and constipation. - Constitutional Vitals: Abnormal lab results Neutrophils # 9.5 K/mcL (1.6-8.9) H 10/23/17 03:33 Carbon Dioxide 34 mEq/L (23-29) H 10/23/17 03:33 Glucose 152 mg/dL (70-105) H 10/23/17 03:33 Serum Total Protein 5.1 g/dL (6.4-8.9) L 10/22/17 04:48 Albumin 3.4 g/dL (3.5-5.7) L 10/22/17 04:48 Globulin 1.7 g/dL (2.4-3.5) L 10/22/17 04:48 Entero/Rhino (PCR) DETECTED (Not Detect) A 10/18/17 14:43 Exam: Vitals reviewed General appearance: alert, oriented x3, appears comfortable Eyes: nonicteric, left lower eyelid edema EENT: oropharynx moist Neck: supple, no lymphadenopathy, no JVD Chest: bilateral: reduced air entry, increased effort Cardiovascular: regular rate and rhythm Gastrointestinal: soft, non-tender, non-distended Integumentary: normal Extremities: no cyanosis, no edema, no clubbing, macular pruritic rash on R hand and arm Musculoskeletal: no deformities, tenderness on palpation of lower back and neck Neurologic: normal mental status, non-focal exam Psych: mood appropriate, affect normal Palliative Quality Palliative Quality: Screen for Code Status: Yes, Screen for Goals of Care: Yes, Screen for Pain: Yes, If Pain Regimen Started, Initiate Bowel Regimen: Yes, Screen for Nausea/Vomitting: Yes Code Status: 10/18/17 13:58 Resuscitation Status: Active [RES] Routine Comment: Resuscitation Status: DNR-Comfort Care-Arrest - Labs CBC & Chem 7: 10/23/17 03:33 10/23/17 03:33 Labs: Laboratory Results - last 24 hr 10/23/17 10/23/17 03:33 03:33 WBC 11.1 RBC 4.70 Hgb 14.2 Hct 41.8 MCV 88.9 MCH 30.2 MCHC 34.0 RDW 12.7 Plt Count 142 MPV 11.1 Immature Gran % 2.3 Seg Neutrophils % 85.8 Lymphocytes % 7.9 Monocytes % 3.6 Eosinophils % 0.0 Basophils % 0.4 Neutrophils # 9.5 H Lymphocytes # 0.9 Monocytes # 0.4 Eosinophils # 0.0 Basophils # 0.0 Sodium 141 Potassium 4.2 Chloride 102 Carbon Dioxide 34 H BUN 20 Creatinine 0.80 Est GFR ( Amer) > 60 Est GFR (Non-Af Amer) > 60 BUN/Creatinine Ratio 25 Glucose 152 H Calculated Osmolality 298 Calcium 8.9 - ABG Interpretation ABG results: PT/INR, D-dimer D-Dimer < 215 ng/mLFEU (0-500) 10/18/17 13:11 Consult Discharge Plan - Plan [facility]errals: [facility] [Primary Care Provider] -
[2017-10-24] MEDS: MethylPREDNISolone 40 MG/ML VIAL IVP SCH ×2 (02:42→08:14)
[2017-10-24] MEDS: *HR* HYDROcodone/Acet 5/325 mg TABLET PO SCH ×6 (02:42→21:36)
[2017-10-24] MEDS: Ipratropium/Albuterol Neb 3 ML IH SCH ×6 (03:49→23:59)
[2017-10-24 04:25] LABS: Basophils # 0.1 K/mcL (0.0-0.2); Basophils % 0.6 %; Hematocrit 43.2 % (37.5-50.1); Hemoglobin 14.3 g/dL (12.9-16.9); Immature Granulocytes % 3.4 % (0-4); Lymphocytes # 1.7 K/mcL (0.6-4.6); Lymphocytes % 12.5 %; Mean Corpuscular HGB Conc 33.1 g/dL (31.6-35.5); Mean Corpuscular Hemoglobin 29.8 pg (28.0-33.3); Mean Platelet Volume 11.7 fL (9.4-12.4); Monocytes % 7.3 %; Neutrophils # 10.1 K/mcL (1.6-8.9); Platelet Count 129 K/mcL (140-400); Red Cell Distribution Width 12.8 % (11.5-14.5); Segmented Neutrophils % 76.2 %
[2017-10-24 04:46] LABS: BUN/Creatinine Ratio 27 (6-26); Blood Urea Nitrogen 22 mg/dL (8-23); Calcium 8.8 mg/dL (8.6-10.3); Carbon Dioxide 34 mEq/L (23-29); Chloride 101 mEq/L (98-107); Glucose 141 mg/dL (70-105); Osmolality,Calculated 296 (280-300); Potassium 4.7 mEq/L (3.5-5.1); Sodium 140 mEq/L (136-145); eGFR For Non-African Americans > 60 (> 60)
[2017-10-24] MEDS: *HR* Heparin 5,000 UNIT/ML VIAL SQ SCH ×3 (05:50→21:36)
[2017-10-24] MEDS: Famotidine 20 MG TABLET PO SCH ×2 (08:12→17:06)
[2017-10-24] MEDS: Cholecalciferol (D-3) 1,000 UNIT TABLET PO SCH (08:13)
[2017-10-24] MEDS: cefTRIAXone 1,000 MG in Water for inj. (sterile) 20 ML 10 ML IVP SCH (08:14)
[2017-10-24] MEDS: Budesonide/Formoterol 160/4.5 1 PUFF INH IH SCH ×2 (09:21→20:07)
[2017-10-24] MEDS: Sennosides/Docusate Sodium TABLET PO SCH (10:16)
--- NOTE | 2017-10-24 11:11 | Internal Med Progress Note ---
Hospitalist Progress Note - Encounter Date of Encounter: 10/24/17 Time of Encounter: 11:09 - Subjective Interval History: sortness of breath, cough and wheezing improving overnight. Patient now on room air however is still dyspneic with ambulation. Continuing to report expiratory wheezing. Today no longer having conversational dyspnea and appears to be improving. He has been on high dose IV steroids I do believe he would benefit from additional day stay to down titrate steroids prior to discharging home with oral steroid burst and COPD medications - Exam Vitals: Temp Pulse Resp BP Pulse Ox 97.8 F 80 18 123/70 96 10/24/17 08:05 10/24/17 08:05 10/24/17 09:22 10/24/17 08:05 10/24/17 09:22 Exam: PHYSICAL EXAMINATION: GENERAL: The patient is an ill appearing elderly male in with respiratory distress, He is alert and oriented x3. HEENT: Extraocular muscles are intact. Pupils are equal, round, and reactive to light and accommodation. NECK: Supple. No carotid bruits. LUNGS: Diminished throughout with fine wheezing to auscultation AP and L, prolonged expiratory phase HEART: Regular rate and rhythm, S1, S2 without murmur. ABDOMEN: Soft, nontender, and nondistended. Positive bowel sounds. No hepatosplenomegaly was noted. EXTREMITIES: Without any cyanosis, clubbing, rash, lesions or edema. - Assessment and Plan (1) Bronchitis Current Visit: Yes Status: Acute Assessment and Plan: Presented with bronchitis and COPD exacerbation secondary to influenza 2 and Enterobacter aerogenous 10/22 patient's respiratory status worsened overnight requiring an increase in IV steroids; review of medical biology revealed Enterobacter aerogenous Started IV antibiotics, continued with steroids at that time 10/23 patient continued to improve but requiring nasal cannula for respiratory support 10/24 respiratory status continued to improve throughout the night, patient now on room air and able to ambulate around the room. However he is continuing to have dyspnea with activity and fine expiratory wheezing. I will down titrate steroids today. Upon discharge patient will need burst dose of oral steroids as well as COPD medications. He has been informed he should follow-up with his PCP and have a follow-up appointment with pulmonology for further evaluation. The patient will discharge with palliative care services. cont Mucinex blood cultures X2 pending Continue Rocephin cont duonebs solumedrol 40daily then transitioned to oral upon discharge cont 02 PRN (2) Acute exacerbation of chronic obstructive airways disease Current Visit: Yes Status: Acute Assessment and Plan: See above (3) SOB (shortness of breath) Current Visit: Yes Status: Acute Assessment and Plan: Improving, see above (4) Cough Current Visit: Yes Status: Acute Assessment and Plan: Improving, see above (5) Chronic back pain Current Visit: Yes Status: Chronic Assessment and Plan: History of chronic back pain, patient states he is comfortable and pain is at baseline cont with norco lidoderm patch and when necessary muscle relaxers (6) DVT prophylaxis Current Visit: Yes Status: Acute Assessment and Plan: Continue subcutaneous heparin - Time Spent with Patient Total time spent is greater than 50% in coordination of care (as documented) at patient's floor/unit and/or counseling patient: less than 15 minutes Plan of Care Discussed with: patient Internal Medicine: Result - Labs CBC & Chem 7: 10/24/17 03:30 10/24/17 03:30 Labs: Short CBC 10/24/17 Range/Units 03:30 WBC 13.3 H (4.3-11.1) K/mcL Hgb 14.3 (12.9-16.9) g/dL Hct 43.2 (37.5-50.1) % Plt Count 129 L (140-400) K/mcL Neutrophils # 10.1 H (1.6-8.9) K/mcL BMP 10/24/17 03:30 Sodium 140 Potassium 4.7 Chloride 101 Carbon Dioxide 34 H BUN 22 Creatinine 0.81 Glucose 141 H Calcium 8.8 - ABG Interpretation ABG results: PT/INR, D-dimer D-Dimer < 215 ng/mLFEU (0-500) 10/18/17 13:11 Consult Discharge Plan - Plan [facility] Care Provider[facility] - (5) Chronic back pain Qualifiers: Back pain location: low back pain Back pain laterality: unspecified Sciatica presence: unspecified whether sciatica present Qualified Code(s): M54.5 - Low back pain; G89.29 - Other chronic pain
[2017-10-25] MEDS: *HR* HYDROcodone/Acet 5/325 mg TABLET PO SCH ×4 (02:19→12:05)
[2017-10-25] MEDS: Ipratropium/Albuterol Neb 3 ML IH SCH ×3 (04:44→11:25)
[2017-10-25 05:52] LABS: Hemoglobin 14.8 g/dL (12.9-16.9); Mean Corpuscular HGB Conc 33.6 g/dL (31.6-35.5); Mean Corpuscular Hemoglobin 30.6 pg (28.0-33.3); Mean Corpuscular Volume 91.1 fL (83.0-100.0); Mean Platelet Volume 11.4 fL (9.4-12.4); Platelet Count 137 K/mcL (140-400); Red Blood Count 4.83 M/mcL (4.19-5.50); Red Cell Distribution Width 12.9 % (11.5-14.5)
[2017-10-25] MEDS: *HR* Heparin 5,000 UNIT/ML VIAL SQ SCH (05:52)
[2017-10-25 06:10] LABS: Platelet Estimate Decreased (Normal)
[2017-10-25 06:11] LABS: BUN/Creatinine Ratio 26 (6-26); Blood Urea Nitrogen 24 mg/dL (8-23); Calcium 8.5 mg/dL (8.6-10.3); Carbon Dioxide 35 mEq/L (23-29); Chloride 101 mEq/L (98-107); Glucose 100 mg/dL (70-105); Osmolality,Calculated 296 (280-300); Potassium 4.2 mEq/L (3.5-5.1); Sodium 141 mEq/L (136-145); eGFR For Non-African Americans > 60 (> 60)
[2017-10-25 06:12] LABS: Monocytes # 0.9 K/mcL (0.0-1.3); Neutrophils # 9.6 K/mcL (1.6-8.9)
[2017-10-25 07:43] VITALS: BP 120/73
[2017-10-25] MEDS: Cholecalciferol (D-3) 1,000 UNIT TABLET PO SCH (07:47)
[2017-10-25] MEDS: cefTRIAXone 1,000 MG in Water for inj. (sterile) 20 ML 10 ML IVP SCH (07:47)
[2017-10-25] MEDS: Sennosides/Docusate Sodium TABLET PO SCH (07:47)
[2017-10-25] MEDS: Famotidine 20 MG TABLET PO SCH (07:47)
[2017-10-25] MEDS: Budesonide/Formoterol 160/4.5 1 PUFF INH IH SCH (07:53)
[2017-10-25] MEDS ORDERED: MethylPREDNISolone 40 MG/ML VIAL IVP SCH (09:00)
--- NOTE | 2017-10-25 10:26 | Discharge Summary ---
- NOTES TO OUTPATIENT PROVIDER Notes to Outpatient Provider: Please ensure f/u with pulmonology; patient would benefit from chronic steroid given advanced state of COPD. Additionally, please ensure f/u with pain management Date of Encounter: 10/25/17 Time of Encounter: 10:24 - Discharge Diagnosis (1) Bronchitis Priority: Primary Status: Acute Assessment and Plan: Presented with bronchitis and COPD exacerbation secondary to influenza 2 and Enterobacter aerogenous 10/22 patient's respiratory status worsened overnight requiring an increase in IV steroids; review of medical biology revealed Enterobacter aerogenous Started IV antibiotics, continued with steroids at that time 10/23 patient continued to improve but requiring nasal cannula for respiratory support 10/24 respiratory status continued to improve throughout the night, patient now on room air and able to ambulate around the room. 10/25-dyspnea improving overnight, patient on room air resting comfortably. We will perform a 6 minute walk test to see if he qualifies for portable oxygen tank. Patient tolerating down titration of oral steroids. Per review of today' s CBC he is not having increasing leukocytosis, however, clinically the patient is continuing to improve. 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 Additionally, due to tobacco abuse smoking 4 packs per day the patient has been educated regarding tobacco cessation. Throughout the stay he was being followed with palliative care services and while he initially declined upon day of discharge the patient decided to like to discuss palliative care with [place] follow-up care services. Nurse navigator Odalys Ames making recommendations for [place] positive care services. Additionally, patient to follow-up with pain management at [facility]. Mucinex at d/c blood cultures with no growth Cefdinir x8 additional days for a total of 10 days of coverage at d/c cont home COPD meds at d/c 40mg oral steroid burst x5 days cont 02 PRN (2) Acute exacerbation of chronic obstructive airways disease Priority: Secondary Status: Acute Assessment and Plan: See above (3) SOB (shortness of breath) Priority: Secondary Status: Acute Assessment and Plan: Improving (4) Cough Priority: Secondary Status: Acute Assessment and Plan: Improving (5) Chronic back pain Priority: Secondary Status: Chronic Assessment and Plan: Follow-up with pain management and [facility] nurse navigator assisting with follow-up Qualifiers: Back pain location: low back pain Back pain laterality: unspecified Sciatica presence: unspecified whether sciatica present Qualified Code(s): M54.5 - Low back pain; G89.29 - Other chronic pain (6) DVT prophylaxis Priority: Secondary Status: Acute Hospital course: Mr. Flores is a 66 year old male admitted with respiratory distress, secondary to acute exacerbation of COPD/bronchitis with Enterobacter aerogenes, and parainfluenza 2. He required oxygen administration for respiratory support; at home he wears o2 PRN, however, was requiring higher doses during the stay. He received IV steroids, 3rd gen cephalosporins and NEBS and his status improved. O2 requirements decreased throughout stay and he was on room air, with out respiratory distress fevers, or hemodynamic instability for greater than 48 hours. He is being d/c on Omnicef x 8 days for 10 days total, oral steroid burst and inhalers. f/u with PCP in 1-week, will need f/u with pain management and [place] palliative team. Nurse navigator working on [place] pain clinic and palliative team f/u. Of note his WBC's were increasing at d/c but the patient has continued to improved. Consider iv steroids as cause of increase in WBC. Discharge discussed with: patient, nurse - Time Spent with Patient Total time spent providing and/or coordinating discharge services: Less than 30 minutes - Discharge Medications Prescriptions: Cefdinir [Omnicef] 300 mg PO BID 8 Days #16 capsule GuaiFENesin ER [Mucinex] 600 mg PO BID 14 Days #28 tbbp.12hr predniSONE [PredniSONE] 40 mg PO DAILY 5 Days #10 tablet Home Medications: Albuterol Sulfate [Proair Hfa] 2 puff IH Q4H PRN 10/18/17 [History] Budesonide/Formoterol 160/4.5 [Symbicort 160/4.5] 2 puff IH BIDR 10/18/17 [ History] Cholecalciferol (D-3) [Vitamin D] 10,000 unit PO DAILY 10/18/17 [History] Ipratropium/Albuterol Neb [Duoneb] 3 ml IH Q8H PRN 10/18/17 [History] Levothyroxine [Synthroid] 112 mcg PO DAILY 10/18/17 [History] Simvastatin [Zocor] 40 mg PO HS 10/18/17 [History] Cefdinir [Omnicef] 300 mg PO BID 8 Days #16 capsule 10/25/17 [Rx] GuaiFENesin ER [Mucinex] 600 mg PO BID 14 Days #28 tbbp.12hr 10/25/17 [Rx] predniSONE [PredniSONE] 40 mg PO DAILY 5 Days #10 tablet 10/25/17 [Rx] Allergies/Adverse Reactions: 3 Allergy/AdvReac Type Severity Reaction Status Date / Time No Known Allergies Allergy Verified 01/07/17 22:25 Date of admission: 10/24/17 13:29 [facility] care physician: [facility] Discharging clinician: Liam Che Anticipated date of discharge: 10/25/17 - Constitutional Vitals: Temp Pulse Resp BP Pulse Ox 97.8 F 82 18 120/73 96 10/25/17 07:39 10/25/17 07:39 10/25/17 07:56 10/25/17 07:39 10/25/17 07:56 General appearance: Present: cooperative, A&O X 3, pleasant, severe distress ( Respiratory/coughing), answers questions appropriately Exam: PHYSICAL EXAMINATION: GENERAL: The patient is an ill appearing elderly male in with respiratory distress, He is alert and oriented x3. HEENT: Extraocular muscles are intact. Pupils are equal, round, and reactive to light and accommodation. NECK: Supple. No carotid bruits. LUNGS: Clear/Diminished throughout AP and L, prolonged expiratory phase, increase in air movement per today's assessment, continued to improve HEART: Regular rate and rhythm, S1, S2 without murmur. ABDOMEN: Soft, nontender, and nondistended. Positive bowel sounds. No hepatosplenomegaly was noted. EXTREMITIES: Without any cyanosis, clubbing, rash, lesions or edema. - Patient Status Disposition: Home, Self-Care Condition: Fair Functional capacity at discharge: independent ambulation Overall status at discharge: patient is progressing back to baseline - Discharge Instructions Instructions: Chronic Obstructive Pulmonary Disease (DC) [facility] With: [facility] [Primary Care Provider] - - Diet and Activity Activity: increase activity as tolerated, resume usual activities as tolerated, other (Wear oxygen as needed) Diet: advance to your usual diet
== END 2017-10-25 12:11 | disposition home or self-care (01) | DRG 194 ==
LOC: EMEROOARM 08:08 → 3BNU 08:08
PROVIDERS: ADMIT Student in an Organized Health Care Education/Training Program; ATTEND Student in an Organized Health Care Education/Training Program

== ENCOUNTER 2021-05-03 10:44 | Inpatient (IN) ==
[2021-05-03 11:41] LABS: Basophils % 0.1 %; Hemoglobin 14.6 g/dL (12.9-16.9); Immature Granulocytes % 0.5 % (0-4); Lymphocytes # 1.4 K/mcL (0.6-4.6); Lymphocytes % 8.9 %; Mean Corpuscular HGB Conc 33.2 g/dL (31.6-35.5); Mean Corpuscular Hemoglobin 29.8 pg (28.0-33.3); Mean Corpuscular Volume 89.8 fL (83.0-100.0); Mean Platelet Volume 10.5 fL (9.4-12.4); Monocytes # 0.8 K/mcL (0.0-1.3); Monocytes % 4.7 %; Platelet Count 261 K/mcL (140-400); Red Cell Distribution Width 12.8 % (11.5-14.5); Segmented Neutrophils % 85.8 %; White Blood Count 16.3 K/mcL (4.3-11.1)
[2021-05-03] MEDS ORDERED: methylPREDNISolone 125 MG/2 ML VIAL IVP STA (11:44)
[2021-05-03] MEDS ORDERED: Ipratropium/Albuterol Neb 3 ML IH ONE ×2 (11:44→13:52)
[2021-05-03 12:01] LABS: BUN/Creatinine Ratio 20 (6-26); Blood Urea Nitrogen 18 mg/dL (8-23); Calcium 9.7 mg/dL (8.6-10.3); Carbon Dioxide 34 mEq/L (23-29); Chloride 98 mEq/L (98-107); Glucose 146 mg/dL (70-105); Osmolality,Calculated 293 (280-300); Potassium 4.2 mEq/L (3.5-5.1); Sodium 139 mEq/L (136-145); Troponin I < 0.03 ng/mL (< 0.04); eGFR For African Americans > 60 (> 60); eGFR For Non-African Americans > 60 (> 60)
[2021-05-03 13:43] LABS: VBG HCO3 34 mEq/L (21-27); VBG PCO2 56 mmHg (41-51); VBG PH 7.39 pH Units (7.32-7.42); VBG PO2 176 mmHg (25-50)
[2021-05-03 14:43] LABS: Influenza A PCR Negative (Negative); Influenza B PCR Negative (Negative); Resp. Syncytial Virus PCR Negative (Negative)
[2021-05-03 14:46] LABS: SARS-CoV-2 by PCR (In House) Negative (Negative)
[2021-05-03] MEDS ORDERED: Azithromycin 500 MG in 0.9 % Sodium Chloride 250 ML IVPB ONE (15:54)
[2021-05-03] MEDS ORDERED: Naloxone 0.4 MG/ML INJ IVP PRN (16:17)
[2021-05-03] MEDS ORDERED: Melatonin 3 MG TABLET PO PRN (16:17)
[2021-05-03] MEDS ORDERED: MOM Conc 10 ML UD.LIQ PO PRN (16:17)
[2021-05-03] MEDS ORDERED: *HR* Promethazine 25 MG/ML VIAL IM PRN (16:17)
[2021-05-03] MEDS ORDERED: Acetaminophen 325 MG TABLET PO PRN (16:17)
[2021-05-03 17:32] LABS: Estimated Average Glucose 100 mg/dl; Hemoglobin A1C 5.1 %
[2021-05-03] MEDS: Ipratropium/Albuterol Neb 3 ML IH SCH ×2 (20:04→23:43)
[2021-05-03] MEDS: *HR* Heparin 5,000 UNIT/ML VIAL SQ SCH (20:55)
[2021-05-03] MEDS: MethylPREDNISolone 40 MG/ML VIAL IVP SCH (20:55)
[2021-05-04] MEDS ORDERED: methylPREDNISolone 125 MG/2 ML VIAL IVP SCH
[2021-05-04] MEDS: Ipratropium/Albuterol Neb 3 ML IH SCH ×6 (04:19→23:48)
[2021-05-04] MEDS: *HR* Heparin 5,000 UNIT/ML VIAL SQ SCH ×3 (05:22→21:23)
[2021-05-04] MEDS: MethylPREDNISolone 40 MG/ML VIAL IVP SCH ×3 (05:22→21:23)
[2021-05-04 06:41] LABS: Hematocrit 42.2 % (37.5-50.1); Hemoglobin 13.9 g/dL (12.9-16.9); Mean Corpuscular HGB Conc 32.9 g/dL (31.6-35.5); Mean Corpuscular Hemoglobin 29.4 pg (28.0-33.3); Mean Corpuscular Volume 89.2 fL (83.0-100.0); Mean Platelet Volume 10.5 fL (9.4-12.4); Platelet Count 220 K/mcL (140-400); Red Blood Count 4.73 M/mcL (4.19-5.50); Red Cell Distribution Width 12.7 % (11.5-14.5); White Blood Count 18.3 K/mcL (4.3-11.1)
[2021-05-04] MEDS: Azithromycin 250 MG TABLET PO SCH (08:13)
[2021-05-04] MEDS: Nicotine 14 MG PATCH.TD24 TD SCH (08:16)
[2021-05-04 08:28] LABS: BUN/Creatinine Ratio 23 (6-26); Blood Urea Nitrogen 21 mg/dL (8-23); Calcium 9.5 mg/dL (8.6-10.3); Carbon Dioxide 30 mEq/L (23-29); Chloride 103 mEq/L (98-107); Glucose 131 mg/dL (70-105); Osmolality,Calculated 297 (280-300); Potassium 4.5 mEq/L (3.5-5.1); Sodium 141 mEq/L (136-145); eGFR For African Americans > 60 (> 60); eGFR For Non-African Americans > 60 (> 60)
[2021-05-04] MEDS ORDERED: Fluticasone Propionate Nasal 50 MCG/SPRAY BOTTLE NS PRN (14:08)
[2021-05-04] MEDS: Acetylcysteine 10% 2 ML INHSOL IH SCH ×3 (15:43→23:50)
[2021-05-04] MEDS: Budesonide/Formoterol 160/4.5 1 PUFF INH IH SCH ×2 (15:44→20:29)
[2021-05-04] MEDS: Lactobacillus 1 EACH CAP.SPRINK PO SCH (21:23)
[2021-05-05 01:44] LABS: Hematocrit 38.3 % (37.5-50.1); Hemoglobin 12.8 g/dL (12.9-16.9); Mean Corpuscular HGB Conc 33.4 g/dL (31.6-35.5); Mean Corpuscular Volume 89.9 fL (83.0-100.0); Mean Platelet Volume 10.6 fL (9.4-12.4); Platelet Count 186 K/mcL (140-400); Red Blood Count 4.26 M/mcL (4.19-5.50); Red Cell Distribution Width 12.9 % (11.5-14.5); White Blood Count 16.2 K/mcL (4.3-11.1)
[2021-05-05 01:57] LABS: BUN/Creatinine Ratio 36 (6-26); Blood Urea Nitrogen 30 mg/dL (8-23); Calcium 9.3 mg/dL (8.6-10.3); Carbon Dioxide 34 mEq/L (23-29); Chloride 103 mEq/L (98-107); Glucose 139 mg/dL (70-105); Osmolality,Calculated 298 (280-300); Potassium 4.8 mEq/L (3.5-5.1); Sodium 140 mEq/L (136-145); eGFR For African Americans > 60 (> 60); eGFR For Non-African Americans > 60 (> 60)
[2021-05-05] MEDS: Acetylcysteine 10% 2 ML INHSOL IH SCH ×5 (04:08→20:19)
[2021-05-05] MEDS: Ipratropium/Albuterol Neb 3 ML IH SCH ×5 (04:08→20:18)
[2021-05-05] MEDS: MethylPREDNISolone 40 MG/ML VIAL IVP SCH ×3 (04:52→22:19)
[2021-05-05] MEDS: *HR* Heparin 5,000 UNIT/ML VIAL SQ SCH ×3 (05:10→22:19)
[2021-05-05] MEDS: Budesonide/Formoterol 160/4.5 1 PUFF INH IH SCH ×2 (07:56→20:18)
[2021-05-05] MEDS ORDERED: Ondansetron 4 MG/2 ML VIAL IVP PRN (09:49)
[2021-05-05] MEDS ORDERED: *HR* Labetalol 20 MG/4 ML SYRINGE IVP PRN (09:49)
[2021-05-05] MEDS ORDERED: Lidocaine -MPF 4% 5 ML AMPUL ONE (10:03)
[2021-05-05] MEDS ORDERED: Lidocaine -MPF 2% 5 ML VIAL ONE (10:04)
[2021-05-05] MEDS ORDERED: Ondansetron 4 MG/2 ML VIAL ONE (10:05)
[2021-05-05] MEDS: Azithromycin 250 MG TABLET PO SCH (12:13)
[2021-05-05] MEDS: Nicotine 14 MG PATCH.TD24 TD SCH (12:15)
[2021-05-05] MEDS: Lactobacillus 1 EACH CAP.SPRINK PO SCH ×2 (12:16→22:19)
[2021-05-05 17:41] LABS: Albumin 3.9 g/dL (3.5-5.7); Albumin/Globulin Ratio 1.6 (1.1-2.2); Bilirubin,Indirect 0.3 mg/dL (0.0-1.0); Bilirubin,Total 0.3 mg/dL (0.3-1.0); Globulin 2.5 g/dL (2.4-3.5); Total Protein 6.4 g/dL (6.4-8.9)
[2021-05-05 18:21] LABS: Appearance of Body Fluid Hazy (Clear); Volume of Body Fluid 25 mL
[2021-05-06] MEDS: Ipratropium/Albuterol Neb 3 ML IH SCH ×7 (00:25→23:34)
[2021-05-06] MEDS: Acetylcysteine 10% 2 ML INHSOL IH SCH ×7 (00:25→23:34)
[2021-05-06 01:33] LABS: Hematocrit 39.8 % (37.5-50.1); Hemoglobin 13.4 g/dL (12.9-16.9); Mean Corpuscular HGB Conc 33.7 g/dL (31.6-35.5); Mean Corpuscular Hemoglobin 30.5 pg (28.0-33.3); Mean Corpuscular Volume 90.5 fL (83.0-100.0); Mean Platelet Volume 10.3 fL (9.4-12.4); Platelet Count 187 K/mcL (140-400); Red Cell Distribution Width 12.8 % (11.5-14.5); White Blood Count 16.2 K/mcL (4.3-11.1)
[2021-05-06 01:54] LABS: BUN/Creatinine Ratio 34 (6-26); Blood Urea Nitrogen 30 mg/dL (8-23); Calcium 9.2 mg/dL (8.6-10.3); Carbon Dioxide 32 mEq/L (23-29); Chloride 102 mEq/L (98-107); Glucose 154 mg/dL (70-105); Osmolality,Calculated 297 (280-300); Potassium 4.6 mEq/L (3.5-5.1); Sodium 139 mEq/L (136-145); eGFR For African Americans > 60 (> 60); eGFR For Non-African Americans > 60 (> 60)
[2021-05-06] MEDS: *HR* Heparin 5,000 UNIT/ML VIAL SQ SCH ×3 (05:03→21:50)
[2021-05-06] MEDS: MethylPREDNISolone 40 MG/ML VIAL IVP SCH (05:03)
[2021-05-06] MEDS: Budesonide/Formoterol 160/4.5 1 PUFF INH IH SCH ×2 (07:27→20:00)
[2021-05-06] MEDS: Azithromycin 250 MG TABLET PO SCH (09:07)
[2021-05-06] MEDS: Lactobacillus 1 EACH CAP.SPRINK PO SCH ×2 (09:08→21:50)
[2021-05-06] MEDS: Nicotine 14 MG PATCH.TD24 TD SCH (09:08)
[2021-05-07 02:37] LABS: Hematocrit 38.9 % (37.5-50.1); Hemoglobin 12.8 g/dL (12.9-16.9); Mean Corpuscular HGB Conc 32.9 g/dL (31.6-35.5); Mean Corpuscular Hemoglobin 29.6 pg (28.0-33.3); Mean Platelet Volume 10.2 fL (9.4-12.4); Platelet Count 171 K/mcL (140-400); Red Blood Count 4.32 M/mcL (4.19-5.50); White Blood Count 12.5 K/mcL (4.3-11.1)
[2021-05-07 02:55] LABS: BUN/Creatinine Ratio 34 (6-26); Blood Urea Nitrogen 27 mg/dL (8-23); Calcium 8.8 mg/dL (8.6-10.3); Carbon Dioxide 32 mEq/L (23-29); Chloride 103 mEq/L (98-107); Glucose 125 mg/dL (70-105); Osmolality,Calculated 297 (280-300); Potassium 4.3 mEq/L (3.5-5.1); Sodium 140 mEq/L (136-145); eGFR For African Americans > 60 (> 60); eGFR For Non-African Americans > 60 (> 60)
[2021-05-07] MEDS: Ipratropium/Albuterol Neb 3 ML IH SCH ×3 (04:03→11:34)
[2021-05-07] MEDS: Acetylcysteine 10% 2 ML INHSOL IH SCH ×3 (04:03→11:34)
[2021-05-07] MEDS: *HR* Heparin 5,000 UNIT/ML VIAL SQ SCH (05:52)
[2021-05-07] MEDS: Budesonide/Formoterol 160/4.5 1 PUFF INH IH SCH (07:38)
[2021-05-07] MEDS: Azithromycin 250 MG TABLET PO SCH (08:57)
[2021-05-07] MEDS: Lactobacillus 1 EACH CAP.SPRINK PO SCH (08:57)
[2021-05-07] MEDS: Nicotine 14 MG PATCH.TD24 TD SCH (08:57)
[2021-05-07] MEDS ORDERED: predniSONE 20 MG TABLET PO SCH (09:00)
[2021-05-07 10:40] VITALS: BP 117/62; PULSE 78; TEMP 98.3; O2SAT 94
[2021-05-09 00:52] LABS: QuantiFERON Mitogen minus NIL >10.00 IU/mL
[2021-05-09 09:55] LABS: QuantiFERON NIL 0.01 IU/mL; QuantiFERON-TB Gold In-Tube NEGATIVE (Negative)
[2021-05-10 21:51] LABS: A.galactomannan Ag Index 0.04
== END 2021-05-07 12:17 | disposition home or self-care (01) | DRG 191 ==
LOC: EMEROOARM 10:44 → 3BNU 10:44 → SUATTDRO 05-05 14:08
PROVIDERS: ADMIT Internal Medicine; ATTEND Internal Medicine
PROC: ENDOBBX (2021-05-05 10:00)

== ENCOUNTER 2021-05-18 15:19 | Inpatient (IN) ==
[2021-05-18] MEDS ORDERED: Ipratropium/Albuterol Neb 3 ML IH ONE ×2 (17:00→18:47)
[2021-05-18] MEDS ORDERED: methylPREDNISolone 125 MG/2 ML VIAL IVP ONE (17:07)
[2021-05-18 17:36] LABS: Basophils % 0.1 %; Eosinophils # 0.1 K/mcL (0.0-0.6); Eosinophils % 0.6 %; Hematocrit 41.4 % (37.5-50.1); Hemoglobin 13.4 g/dL (12.9-16.9); Immature Granulocytes % 0.6 % (0-4); Lymphocytes # 1.8 K/mcL (0.6-4.6); Lymphocytes % 9.7 %; Mean Corpuscular HGB Conc 32.4 g/dL (31.6-35.5); Mean Corpuscular Hemoglobin 29.4 pg (28.0-33.3); Mean Corpuscular Volume 90.8 fL (83.0-100.0); Mean Platelet Volume 9.7 fL (9.4-12.4); Monocytes # 1.3 K/mcL (0.0-1.3); Monocytes % 7.2 %; Neutrophils # 14.9 K/mcL (1.6-8.9); Platelet Count 145 K/mcL (140-400); Red Blood Count 4.56 M/mcL (4.19-5.50); Segmented Neutrophils % 81.8 %; White Blood Count 18.2 K/mcL (4.3-11.1)
[2021-05-18 17:49] LABS: VBG HCO3 34 mEq/L (21-27); VBG PCO2 59 mmHg (41-51); VBG PH 7.37 pH Units (7.32-7.42); VBG PO2 58 mmHg (25-50)
[2021-05-18 18:15] LABS: BUN/Creatinine Ratio 22 (6-26); Blood Urea Nitrogen 17 mg/dL (8-23); Calcium 8.7 mg/dL (8.6-10.3); Carbon Dioxide 32 mEq/L (23-29); Chloride 98 mEq/L (98-107); Glucose 132 mg/dL (70-105); Osmolality,Calculated 283 (280-300); Potassium 3.8 mEq/L (3.5-5.1); Sodium 135 mEq/L (136-145); Troponin I < 0.03 ng/mL (< 0.04); eGFR For African Americans > 60 (> 60); eGFR For Non-African Americans > 60 (> 60)
[2021-05-18] MEDS ORDERED: Azithromycin 250 MG TABLET PO ONE (18:47)
[2021-05-18] MEDS ORDERED: Isovue-370 500 ML BOTTLE IVP ONE (21:13)
[2021-05-18] MEDS ORDERED: Acetaminophen 325 MG TABLET PO PRN (21:41)
[2021-05-18] MEDS ORDERED: Ondansetron 4 MG/2 ML VIAL IVP PRN (21:41)
[2021-05-18] MEDS ORDERED: Melatonin 3 MG TABLET PO PRN (21:41)
[2021-05-18] MEDS ORDERED: Naloxone 0.4 MG/ML INJ IVP PRN (21:41)
[2021-05-18 22:47] LABS: Adenovirus Not Detected (Not Detect); Bordetella Pertussis Not Detected (Not Detect); Chlamydophila pneumoniae Not Detected (Not Detect); Coronavirus 229E Not Detected (Not Detect); Coronavirus HKU1 Not Detected (Not Detect); Coronavirus NL63 Not Detected (Not Detect); Coronavirus OC43 Not Detected (Not Detect); Human Metapneumovirus Not Detected (Not Detect); Human Rhinovirus/Enterovirus Not Detected (Not Detect); Influenza A Subtype 2009 H1 Not Detected (Not Detect); Influenza B Not Detected (Not Detect); Mycoplasma pneumoniae Not Detected (Not Detect); Parainfluenza Virus 1 Not Detected (Not Detect); Parainfluenza Virus 2 Not Detected (Not Detect); Parainfluenza Virus 3 Not Detected (Not Detect); Parainfluenza Virus 4 Not Detected (Not Detect); Respiratory Syncytial Virus Not Detected (Not Detect); SARS-CoV-2 Not Detected (Not Detect)
[2021-05-19] MEDS ORDERED: Piperacillin/Tazobactam 3.375 GM in 0.9 % Sodium Chloride Mini Bag 100 ML IVPB SCH
[2021-05-19] MEDS: Ipratropium/Albuterol Neb 3 ML IH SCH ×7 (00:12→23:40)
[2021-05-19] MEDS: MethylPREDNISolone 40 MG/ML VIAL IVP SCH ×4 (03:09→22:51)
[2021-05-19] MEDS ORDERED: D5% in Water 1,000 ML IVC PRN (05:40)
[2021-05-19] MEDS ORDERED: Dextrose 4 GM Chewable Tablets PO PRN ×2 (05:40)
[2021-05-19] MEDS ORDERED: *HR* Dextrose 50 % in Water (Syg) 50 ML SYRINGE IVP PRN (05:40)
[2021-05-19 06:01] LABS: Basophils % 0.1 %; Hematocrit 39.4 % (37.5-50.1); Hemoglobin 13.2 g/dL (12.9-16.9); Immature Granulocytes % 0.6 % (0-4); Lymphocytes # 0.7 K/mcL (0.6-4.6); Lymphocytes % 5.7 %; Mean Corpuscular HGB Conc 33.5 g/dL (31.6-35.5); Mean Corpuscular Hemoglobin 29.9 pg (28.0-33.3); Mean Corpuscular Volume 89.1 fL (83.0-100.0); Mean Platelet Volume 9.7 fL (9.4-12.4); Monocytes # 0.1 K/mcL (0.0-1.3); Neutrophils # 11.9 K/mcL (1.6-8.9); Platelet Count 134 K/mcL (140-400); Red Blood Count 4.42 M/mcL (4.19-5.50); Red Cell Distribution Width 13.8 % (11.5-14.5); Segmented Neutrophils % 92.6 %; White Blood Count 12.9 K/mcL (4.3-11.1)
[2021-05-19 06:12] LABS: INR 1.2; Prothrombin Time 13.1 Seconds (9.4-12.1)
[2021-05-19 06:15] LABS: Activated Partial Thrombo Time 27.8 Seconds (26.0-36.0)
[2021-05-19] MEDS ORDERED: Fluticasone Propionate Nasal 50 MCG/SPRAY BOTTLE NS PRN (06:20)
[2021-05-19 06:38] LABS: Alanine Aminotransferase 17 Units/L (7-52); Albumin 3.1 g/dL (3.5-5.7); Albumin/Globulin Ratio 1.5 (1.1-2.2); Alkaline Phosphatase 54 Units/L (34-104); Aspartate Amino Transferase 12 Units/L (13-39); BUN/Creatinine Ratio 26 (6-26); Bilirubin,Total 0.6 mg/dL (0.3-1.0); Blood Urea Nitrogen 18 mg/dL (8-23); Calcium 8.7 mg/dL (8.6-10.3); Carbon Dioxide 31 mEq/L (23-29); Chloride 100 mEq/L (98-107); Globulin 2.1 g/dL (2.4-3.5); Glucose 143 mg/dL (70-105); Magnesium 2.3 mg/dL (1.6-2.6); Osmolality,Calculated 292 (280-300); Phosphorous 3.1 mg/dL (2.7-4.5); Potassium 4.4 mEq/L (3.5-5.1); Sodium 139 mEq/L (136-145); Total Protein 5.2 g/dL (6.4-8.9); Troponin I < 0.03 ng/mL (< 0.04); eGFR For African Americans > 60 (> 60); eGFR For Non-African Americans > 60 (> 60)
[2021-05-19] MEDS: Budesonide/Formoterol 160/4.5 1 PUFF INH IH SCH ×2 (07:34→19:53)
[2021-05-19] MEDS: 0.9 % Sodium Chloride 1,000 ML IVC SCH ×2 (07:53→22:51)
[2021-05-19] MEDS: Nicotine 21 MG PATCH.TD24 TD SCH ×2 (07:54→08:00)
[2021-05-19] MEDS: Chlorhexidine Rinse 15 ML MOUTHWASH MM SCH ×2 (07:54→22:50)
[2021-05-19] MEDS: Lactobacillus 1 EACH CAP.SPRINK PO SCH ×2 (07:55→22:59)
[2021-05-19 08:30] LABS: ABG Base Excess 5 mEq/L (-2 to 3); ABG HCO3 31 mEq/L (21-27); ABG Oxygen Saturation 95 % (95-98); ABG PCO2 48 mmHg (35-45); ABG PH 7.42 pH Units (7.32-7.45); ABG PO2 75 mmHg (85-104); ABG TCO2 32 mEq/L (20-26)
[2021-05-19] MEDS: levoFLOXacin 750 MG TABLET PO SCH (12:35)
[2021-05-19] MEDS ORDERED: LACTOBACILLUS ACIDOPHILUS PO SCH (21:00)
[2021-05-19] MEDS ORDERED: Budesonide/Formoterol 160/4.5 1 PUFF INH IH SCH (22:00)
[2021-05-19] MEDS: *HR* LORazepam 0.5 MG TABLET PO PRN (22:51)
[2021-05-20] MEDS: Ipratropium/Albuterol Neb 3 ML IH SCH ×6 (04:46→23:33)
[2021-05-20 05:17] LABS: Hemoglobin 12.1 g/dL (12.9-16.9)
[2021-05-20 05:18] LABS: Hematocrit 37.3 % (37.5-50.1); Mean Corpuscular HGB Conc 32.4 g/dL (31.6-35.5); Mean Corpuscular Hemoglobin 29.6 pg (28.0-33.3); Mean Corpuscular Volume 91.2 fL (83.0-100.0); Mean Platelet Volume 10.1 fL (9.4-12.4); Platelet Count 130 K/mcL (140-400); Red Blood Count 4.09 M/mcL (4.19-5.50); Red Cell Distribution Width 13.7 % (11.5-14.5); White Blood Count 25.1 K/mcL (4.3-11.1)
[2021-05-20 05:33] LABS: BUN/Creatinine Ratio 29 (6-26); Blood Urea Nitrogen 24 mg/dL (8-23); Calcium 8.9 mg/dL (8.6-10.3); Carbon Dioxide 32 mEq/L (23-29); Chloride 102 mEq/L (98-107); Glucose 155 mg/dL (70-105); Osmolality,Calculated 293 (280-300); Potassium 5.3 mEq/L (3.5-5.1); Sodium 138 mEq/L (136-145); eGFR For African Americans > 60 (> 60); eGFR For Non-African Americans > 60 (> 60)
[2021-05-20] MEDS: *HR* Enoxaparin 40 MG/0.4 ML SYRINGE SQ SCH (06:34)
[2021-05-20] MEDS: Budesonide/Formoterol 160/4.5 1 PUFF INH IH SCH ×2 (07:35→19:42)
[2021-05-20] MEDS: MethylPREDNISolone 40 MG/ML VIAL IVP SCH ×3 (08:42→23:42)
[2021-05-20] MEDS: levoFLOXacin 750 MG TABLET PO SCH (08:42)
[2021-05-20] MEDS: Lactobacillus 1 EACH CAP.SPRINK PO SCH ×2 (08:42→19:26)
[2021-05-20] MEDS: Chlorhexidine Rinse 15 ML MOUTHWASH MM SCH ×2 (08:42→19:26)
[2021-05-20] MEDS: Nicotine 21 MG PATCH.TD24 TD SCH (08:43)
[2021-05-20] MEDS: GuaiFENesin/Dextromethorphan TABLET PO SCH ×2 (08:59→19:26)
[2021-05-20] MEDS ORDERED: 3% Sodium Chloride Inhalation 4 ML VIAL.NEB IH SCH (15:45)
[2021-05-20] MEDS: *HR* HYDROcodone/Acet 5/325 mg TABLET PO PRN (19:26)
[2021-05-20] MEDS: 3% Sodium Chloride Inhalation 4 ML VIAL.NEB IH SCH (19:43)
[2021-05-20] MEDS: *HR* LORazepam 0.5 MG TABLET PO PRN (20:49)
[2021-05-21 03:03] LABS: Hematocrit 34.6 % (37.5-50.1); Hemoglobin 11.4 g/dL (12.9-16.9); Lymphocytes # 0.6 K/mcL (0.6-4.6); Lymphocytes % 2.7 %; Mean Corpuscular HGB Conc 32.9 g/dL (31.6-35.5); Mean Corpuscular Hemoglobin 29.5 pg (28.0-33.3); Mean Corpuscular Volume 89.4 fL (83.0-100.0); Monocytes # 0.4 K/mcL (0.0-1.3); Monocytes % 1.8 %; Neutrophils # 19.6 K/mcL (1.6-8.9); Platelet Count 131 K/mcL (140-400); Red Blood Count 3.87 M/mcL (4.19-5.50); Segmented Neutrophils % 94.5 %; White Blood Count 20.8 K/mcL (4.3-11.1)
[2021-05-21 03:21] LABS: BUN/Creatinine Ratio 33 (6-26); Blood Urea Nitrogen 26 mg/dL (8-23); Calcium 8.5 mg/dL (8.6-10.3); Carbon Dioxide 32 mEq/L (23-29); Chloride 103 mEq/L (98-107); Glucose 145 mg/dL (70-105); Osmolality,Calculated 295 (280-300); Potassium 4.3 mEq/L (3.5-5.1); Sodium 139 mEq/L (136-145); eGFR For African Americans > 60 (> 60); eGFR For Non-African Americans > 60 (> 60)
[2021-05-21] MEDS: Ipratropium/Albuterol Neb 3 ML IH SCH ×5 (03:40→19:46)
[2021-05-21] MEDS: *HR* Enoxaparin 40 MG/0.4 ML SYRINGE SQ SCH (04:56)
[2021-05-21] MEDS: 3% Sodium Chloride Inhalation 4 ML VIAL.NEB IH SCH ×2 (07:54→19:46)
[2021-05-21] MEDS: Budesonide/Formoterol 160/4.5 1 PUFF INH IH SCH ×2 (08:01→19:46)
[2021-05-21] MEDS: Lactobacillus 1 EACH CAP.SPRINK PO SCH ×2 (08:34→20:45)
[2021-05-21] MEDS: levoFLOXacin 750 MG TABLET PO SCH (08:34)
[2021-05-21] MEDS: GuaiFENesin/Dextromethorphan TABLET PO SCH ×2 (08:34→20:44)
[2021-05-21] MEDS: Chlorhexidine Rinse 15 ML MOUTHWASH MM SCH ×2 (08:34→20:55)
[2021-05-21] MEDS: MethylPREDNISolone 40 MG/ML VIAL IVP SCH ×2 (08:35→17:27)
[2021-05-21] MEDS: Nicotine 21 MG PATCH.TD24 TD SCH (08:35)
[2021-05-21] MEDS: *HR* HYDROcodone/Acet 5/325 mg TABLET PO PRN ×3 (08:37→20:45)
[2021-05-21 10:57] LABS: Mycoplasma pneumoniae IgG 0.08 U/L (<=0.09)
[2021-05-21] MEDS: *HR* LORazepam 0.5 MG TABLET PO PRN (20:44)
[2021-05-22] MEDS: Ipratropium/Albuterol Neb 3 ML IH SCH ×7 (00:09→23:33)
[2021-05-22] MEDS: MethylPREDNISolone 40 MG/ML VIAL IVP SCH ×3 (00:10→16:12)
[2021-05-22] MEDS: *HR* HYDROcodone/Acet 5/325 mg TABLET PO PRN ×4 (02:04→20:07)
[2021-05-22 03:05] LABS: Hematocrit 35.7 % (37.5-50.1); Hemoglobin 11.4 g/dL (12.9-16.9); Mean Corpuscular HGB Conc 31.9 g/dL (31.6-35.5); Mean Corpuscular Hemoglobin 29.4 pg (28.0-33.3); Platelet Count 123 K/mcL (140-400); Red Blood Count 3.88 M/mcL (4.19-5.50); Red Cell Distribution Width 14.3 % (11.5-14.5); White Blood Count 14.9 K/mcL (4.3-11.1)
[2021-05-22 03:24] LABS: BUN/Creatinine Ratio 29 (6-26); Blood Urea Nitrogen 25 mg/dL (8-23); Calcium 8.5 mg/dL (8.6-10.3); Carbon Dioxide 33 mEq/L (23-29); Chloride 102 mEq/L (98-107); Glucose 144 mg/dL (70-105); Osmolality,Calculated 297 (280-300); Potassium 4.8 mEq/L (3.5-5.1); Sodium 140 mEq/L (136-145); eGFR For African Americans > 60 (> 60); eGFR For Non-African Americans > 60 (> 60)
[2021-05-22] MEDS: *HR* Enoxaparin 40 MG/0.4 ML SYRINGE SQ SCH (05:54)
[2021-05-22] MEDS: Budesonide/Formoterol 160/4.5 1 PUFF INH IH SCH ×2 (07:30→19:46)
[2021-05-22] MEDS: levoFLOXacin 750 MG TABLET PO SCH (08:05)
[2021-05-22] MEDS: Chlorhexidine Rinse 15 ML MOUTHWASH MM SCH ×2 (08:05→20:08)
[2021-05-22] MEDS: GuaiFENesin/Dextromethorphan TABLET PO SCH ×2 (08:06→20:08)
[2021-05-22] MEDS: Lactobacillus 1 EACH CAP.SPRINK PO SCH ×2 (08:06→20:07)
[2021-05-22] MEDS: Nicotine 21 MG PATCH.TD24 TD SCH (08:13)
[2021-05-22] MEDS: Azithromycin 250 MG TABLET PO SCH (11:30)
[2021-05-22] MEDS: rifAMPin 150 MG CAPSULE PO SCH (11:33)
[2021-05-22] MEDS: 3% Sodium Chloride Inhalation 4 ML VIAL.NEB IH SCH ×2 (11:37→19:46)
[2021-05-22] MEDS: *HR* LORazepam 0.5 MG TABLET PO PRN (22:05)
[2021-05-23] MEDS: Ipratropium/Albuterol Neb 3 ML IH SCH ×3 (03:45→10:58)
[2021-05-23] MEDS: MethylPREDNISolone 40 MG/ML VIAL IVP SCH ×2 (05:10→08:00)
[2021-05-23] MEDS: *HR* Enoxaparin 40 MG/0.4 ML SYRINGE SQ SCH (05:10)
[2021-05-23] MEDS: Budesonide/Formoterol 160/4.5 1 PUFF INH IH SCH (07:18)
[2021-05-23] MEDS: rifAMPin 150 MG CAPSULE PO SCH (08:06)
[2021-05-23] MEDS: *HR* HYDROcodone/Acet 5/325 mg TABLET PO PRN (08:06)
[2021-05-23] MEDS: Lactobacillus 1 EACH CAP.SPRINK PO SCH (08:06)
[2021-05-23] MEDS: GuaiFENesin/Dextromethorphan TABLET PO SCH (08:07)
[2021-05-23] MEDS: Azithromycin 250 MG TABLET PO SCH (08:07)
[2021-05-23] MEDS: Chlorhexidine Rinse 15 ML MOUTHWASH MM SCH (08:07)
[2021-05-23] MEDS: Nicotine 21 MG PATCH.TD24 TD SCH (08:07)
[2021-05-23 08:13] VITALS: TEMP 97.8
[2021-05-23 10:55] VITALS: BP 153/65; PULSE 87
[2021-05-23] MEDS: 3% Sodium Chloride Inhalation 4 ML VIAL.NEB IH SCH (10:58)
[2021-05-23] MEDS: *HR* LORazepam 0.5 MG TABLET PO PRN (11:53)
[2021-05-23 12:15] VITALS: O2SAT 94
== END 2021-05-23 13:26 | disposition home or self-care (01) | DRG 871 ==
LOC: EMEROOARM 15:19 → 3ANU 15:19 → SUATTDRO 21:28 → 3ANU 22:55
PROVIDERS: ADMIT Internal Medicine; ATTEND Internal Medicine